=== PATIENT | female | born 1990 | race African-American/Black ===

== ENCOUNTER 2017-04-30 15:39 | Emergency (ER) | payer MEDICAID ==
[~2017-04-30] VITALS: Ht 157.5 cm; Wt 72.6 kg
[~2017-04-30 15:39] MED LIST: FAM20T PO; IBUP200C3 PO
[2017-04-30 16:05] VITALS: BP 129/73
== END 2017-04-30 18:01 | disposition home or self-care (01) ==
LOC: ER 15:42
DX: O34.81 Maternal care for other abnormalities of pelvic organs, first trimester (principal); Z3A.01 Less than 8 weeks gestation of pregnancy
CPT/HCPCS: 36415; 76801; 81025; 84702

== ENCOUNTER 2017-05-23 11:05 | Emergency (ER) | payer MEDICAID ==
[~2017-05-23] VITALS: Ht 157.5 cm; Wt 75.3 kg
[2017-05-23 11:20] VITALS: BP 106/66
[2017-05-23 12:10] LABS: Basophils # (auto) 0 uL; Basophils % (auto) 0.7 % (0.0-2.0); Eosinophils # (auto) 0.1 uL; Eosinophils % (auto) 0.8 % (0.0-7.0); Hematocrit 37.4 % (36.0-46.0); Hemoglobin 12.5 g/dL (12.2-16.2); Lymphocytes # (auto) 1.6 uL; Lymphocytes % (auto) 26.6 % (10.0-50.0); Mean Corpuscular Hemoglobin 29.4 pg (28.0-32.0); Mean Corpuscular Hgb Conc. 33.4 g/dL (32.0-36.0); Mean Corpuscular Volume 88.1 fL (80.0-100.0); Monocytes # (auto) 0.7 uL; Monocytes % (auto) 11.9 % (0.0-12.0); Neutrophils # (auto) 3.7 uL; Nucleated Red Blood Cells % 0.1 %; Platelet Count (auto) 272 10^3/uL (140-450); Red Blood Cells 4.24 10^6/uL (4.0-5.20); Red Cell Distribution Width 14.6 % (11.8-14.3); White Blood Cell 6.1 10^3/uL (4.4-10.8)
[2017-05-23 12:27] LABS: Albumin 3.1 g/dL (3.4-5.0); BUN/Creatinine Ratio 7.9; Bilirubin, Total 0.2 mg/dL (0.2-1.0); Calcium 8.6 mg/dL (8.5-10.1); Potassium 3.4 mmol/L (3.5-5.1); Total Protein 7.6 g/dL (6.4-8.2)
[2017-05-23 13:18] LABS: Urine Bacteria NONE SEEN /hpf (None Seen); Urine Blood Negative /uL (Negative); Urine Mucus FEW (None Seen); Urine WBC 1 /hpf (0 - 5)
== END 2017-05-23 16:39 | disposition home or self-care (01) ==
LOC: ER 11:05
DX: O20.0 Threatened abortion (principal); Z3A.09 9 weeks gestation of pregnancy
CPT/HCPCS: 36415; 76801; 80053; 81001; 84702; 85025

== ENCOUNTER 2017-07-03 16:30 | Emergency (ER) | payer MEDICAID ==
[~2017-07-03] VITALS: Ht 157.5 cm; Wt 75.3 kg
[2017-07-03 17:12] VITALS: BP 103/72
[2017-07-03 17:47] LABS: Urine Bacteria NONE SEEN /hpf (None Seen); Urine Blood Negative /uL (Negative); Urine Mucus FEW (None Seen); Urine Specific Gravity 1.015 (1.001-1.035); Urine WBC 2 /hpf (0 - 5)
== END 2017-07-03 18:36 | disposition home or self-care (01) ==
LOC: ER 16:30
DX: O23.42 Unspecified infection of urinary tract in pregnancy, second trimester (principal); O26.892 Other specified pregnancy related conditions, second trimester; R10.30 Lower abdominal pain, unspecified; Z3A.16 16 weeks gestation of pregnancy
CPT/HCPCS: 76805; 81001

== ENCOUNTER 2017-07-15 17:03 | Emergency (ER) | payer MEDICAID ==
[~2017-07-15] VITALS: Ht 157.5 cm; Wt 73.9 kg
[2017-07-15 17:20] VITALS: BP 121/67
[2017-07-15 18:05] LABS: Basophils # (auto) 0 uL; Basophils % (auto) 0.1 % (0.0-2.0); Eosinophils # (auto) 0 uL; Eosinophils % (auto) 0.5 % (0.0-7.0); Hematocrit 35.5 % (36.0-46.0); Lymphocytes # (auto) 1.4 uL; Lymphocytes % (auto) 16.5 % (10.0-50.0); Mean Corpuscular Hemoglobin 29.9 pg (28.0-32.0); Mean Corpuscular Hgb Conc. 33.7 g/dL (32.0-36.0); Mean Corpuscular Volume 88.7 fL (80.0-100.0); Monocytes # (auto) 0.8 uL; Monocytes % (auto) 8.9 % (0.0-12.0); Neutrophils # (auto) 6.4 uL; Platelet Count (auto) 247 10^3/uL (140-450); White Blood Cell 8.6 10^3/uL (4.4-10.8)
[2017-07-15 18:25] LABS: Albumin 2.7 g/dL (3.4-5.0); BUN/Creatinine Ratio 9.8; Calcium 8.8 mg/dL (8.5-10.1); Potassium 3.4 mmol/L (3.5-5.1)
[2017-07-15 18:28] LABS: Bilirubin, Total 0.2 mg/dL (0.2-1.0); Total Protein 7.1 g/dL (6.4-8.2)
[2017-07-15 18:29] LABS: Urine Bacteria FEW /hpf (None Seen); Urine Blood Negative /uL (Negative); Urine Mucus FEW (None Seen); Urine Specific Gravity 1.027 (1.001-1.035); Urine WBC 39 /hpf (0 - 5)
== END 2017-07-15 21:16 | disposition home or self-care (01) ==
LOC: ER 17:06
DX: O23.42 Unspecified infection of urinary tract in pregnancy, second trimester (principal); Z3A.20 20 weeks gestation of pregnancy
CPT/HCPCS: 36415; 76805; 80053; 81001; 84702; 85025

== ENCOUNTER 2017-08-05 11:55 | Observation (INO) | payer MEDICAID ==
[2017-08-05] MEDS ORDERED: PREN-96 PO (12:31)
== END 2017-08-05 12:50 | disposition home or self-care (01) | DRG 566 ==
LOC: LDRP 11:55
PROVIDERS: ADMIT Specialist; ATTEND Specialist
DX: O26.892 Other specified pregnancy related conditions, second trimester (principal); G43.909 Migraine, unspecified, not intractable, without status migrainosus; Z3A.20 20 weeks gestation of pregnancy
CPT/HCPCS: 59025; 81002; G0378

== ENCOUNTER 2017-08-05 12:59 | Emergency (ER) | payer MEDICAID ==
[~2017-08-05] VITALS: Ht 157.5 cm; Wt 73.9 kg
[~2017-08-05 12:59] MED LIST changes: +PREN-96 PO
[2017-08-05] MEDS ORDERED: ACETAMINOPHEN 325 MG TAB PO ONE (13:45)
[2017-08-05 14:10] VITALS: BP 172/73
== END 2017-08-05 14:47 | disposition home or self-care (01) ==
LOC: ER 12:59
DX: O26.892 Other specified pregnancy related conditions, second trimester (principal); G44.209 Tension-type headache, unspecified, not intractable; Z3A.20 20 weeks gestation of pregnancy; Z79.899 Other long term (current) drug therapy

== ENCOUNTER 2017-09-12 13:35 | Observation (INO) | payer MEDICAID ==
[~2017-09-12 13:35] MED LIST changes: -FAM20T PO; -IBUP200C3 PO; +NITR-48 PO
== END 2017-09-12 15:40 | disposition home or self-care (01) | DRG 566 ==
LOC: LDRP 13:35
PROVIDERS: ADMIT Specialist; ATTEND Specialist
DX: O26.892 Other specified pregnancy related conditions, second trimester (principal); G43.909 Migraine, unspecified, not intractable, without status migrainosus; N89.8 Other specified noninflammatory disorders of vagina; R21 Rash and other nonspecific skin eruption; O26.852 Spotting complicating pregnancy, second trimester; O99.352 Diseases of the nervous system complicating pregnancy, second trimester; Z3A.25 25 weeks gestation of pregnancy
CPT/HCPCS: 59025; 81002; 86695; 86696; 87070; 87491; 87591; G0378

== ENCOUNTER 2017-09-22 16:15 | Observation (INO) | payer MEDICAID ==
[~2017-09-22 16:15] MED LIST changes: -NITR-48 PO
== END 2017-09-22 17:50 | disposition home or self-care (01) | DRG 566 ==
LOC: LDRP 16:15
PROVIDERS: ADMIT Specialist; ATTEND Specialist
DX: O46.92 Antepartum hemorrhage, unspecified, second trimester (principal); Z3A.27 27 weeks gestation of pregnancy
CPT/HCPCS: 59025; 76805; 81002; G0378

== ENCOUNTER 2017-10-24 18:35 | Observation (INO) | payer MEDICAID | END 2017-10-24 20:25 | disposition home or self-care (01) | DRG 566 | LOC: LDRP 18:35 | PROVIDERS: ADMIT Specialist; ATTEND Specialist | DX: O36.8130 Decreased fetal movements, third trimester, not applicable or unspecified (principal); O26.893 Other specified pregnancy related conditions, third trimester; R10.9 Unspecified abdominal pain; R30.0 Dysuria; Z3A.31 31 weeks gestation of pregnancy | CPT/HCPCS: 59025; 76815; 81002; G0378 ==

== ENCOUNTER 2017-10-27 17:50 | Observation (INO) | payer MEDICAID ==
[~2017-10-27] VITALS: Ht 157.5 cm; Wt 73.9 kg
[2017-10-27] MEDS ORDERED: TERBUTALINE SULFATE 1 MG/ML 1ML VIAL SC ONE (20:07)
[2017-10-27] MEDS ORDERED: LACTATED RINGER'S 1,000 ML IV SCH (20:08)
[2017-10-27] MEDS ORDERED: AMOX500C2 PO (20:14)
[2017-10-27] MEDS ORDERED: TERBUTALINE SULFATE 1 MG/ML 1ML VIAL SC SCH (20:15)
[2017-10-27] MEDS ORDERED: ACETAMINOPHEN 325 MG TAB PO ONE (21:15)
== END 2017-10-27 21:45 | disposition home or self-care (01) | DRG 566 ==
LOC: LDRP 17:50
PROVIDERS: ADMIT Specialist; ATTEND Specialist
DX: O99.89 Other specified diseases and conditions complicating pregnancy, childbirth and the puerperium (principal); M54.5 Low back pain; Z3A.32 32 weeks gestation of pregnancy
CPT/HCPCS: 59025; 76815; 81002; 96372; G0378; J3105

== ENCOUNTER 2017-11-02 16:15 | Observation (INO) | payer MEDICAID ==
[~2017-11-02 16:15] MED LIST changes: +AMOX500C2 PO
[2017-11-02] MEDS ORDERED: ACETAMINOPHEN 500 MG TAB PO ONE (17:15)
[2017-11-02] MEDS: TERBUTALINE SULFATE 1 MG/ML 1ML VIAL SC SCH ×3 (17:30→18:15)
[2017-11-02] MEDS ORDERED: HYDROcodone-ACET 5/325MG TAB PO ONE (17:30)
[2017-11-02] MEDS ORDERED: NIFEdipine 10 MG CAP PO ONE (18:30)
[2017-11-02] MEDS ORDERED: NIFEdipine 10 MG CAP ONE (18:37)
== END 2017-11-02 23:43 | disposition home or self-care (01) | DRG 566 ==
LOC: LDRP 16:15
PROVIDERS: ADMIT Obstetrics & Gynecology; ATTEND Obstetrics & Gynecology
DX: O62.9 Abnormality of forces of labor, unspecified (principal); O26.893 Other specified pregnancy related conditions, third trimester; O21.2 Late vomiting of pregnancy; R30.9 Painful micturition, unspecified; R51 Headache; O46.8X3 Other antepartum hemorrhage, third trimester; V49.9XXA Car occupant (driver) (passenger) injured in unspecified traffic accident, initial encounter; Y93.89 Activity, other specified; Y92.410 Unspecified street and highway as the place of occurrence of the external cause; Y99.8 Other external cause status; Z3A.33 33 weeks gestation of pregnancy
CPT/HCPCS: 59025; 81002; 96372; G0378; J3105

== ENCOUNTER 2017-11-16 17:25 | Observation (INO) | payer MEDICAID | END 2017-11-16 19:31 | disposition home or self-care (01) | DRG 566 | LOC: LDRP 17:25 | PROVIDERS: ADMIT Specialist; ATTEND Specialist | DX: O62.9 Abnormality of forces of labor, unspecified (principal); Z3A.35 35 weeks gestation of pregnancy | CPT/HCPCS: 59025; 76815; 76818; 81002; G0378 ==

== ENCOUNTER → 2017-11-24 20:14 | Observation (INO) | payer MEDICAID ==
[~2017-11-24 20:14] MED LIST changes: +NIFEdipine 10 MG CAP ONE; +NIFEdipine 10 MG CAP PO ONE
[2017-11-24 21:13] LABS: Urine Bacteria MOD /hpf (None Seen); Urine Blood 1+ /uL (Negative); Urine Mucus FEW (None Seen); Urine WBC 217 /hpf (0 - 5); Urine WBC Clumps PRESENT /hpf (None Seen)
== END | disposition home or self-care (01) | DRG 563 ==
LOC: LDRP 20:14
PROVIDERS: ADMIT Obstetrics & Gynecology; ATTEND Obstetrics & Gynecology
DX: O60.03 Preterm labor without delivery, third trimester (principal); Z3A.36 36 weeks gestation of pregnancy
CPT/HCPCS: 59025; 76818; 81001; 81002; 82948; 82962; 87086; G0378

== ENCOUNTER 2017-11-28 16:14 | Observation (INO) | payer MEDICAID ==
[~2017-11-28 16:14] MED LIST changes: -NIFEdipine 10 MG CAP ONE; -NIFEdipine 10 MG CAP PO ONE
== END 2017-11-28 20:55 | disposition home or self-care (01) | DRG 565 ==
LOC: LDRP 19:55
PROVIDERS: ADMIT Obstetrics & Gynecology; ATTEND Obstetrics & Gynecology
DX: O47.9 False labor, unspecified (principal); O24.419 Gestational diabetes mellitus in pregnancy, unspecified control; G43.909 Migraine, unspecified, not intractable, without status migrainosus; O99.353 Diseases of the nervous system complicating pregnancy, third trimester; Z3A.36 36 weeks gestation of pregnancy
CPT/HCPCS: 59025; 81002; 82948; 82962; G0378

== ENCOUNTER 2017-12-02 19:19 | Observation (INO) | payer MEDICAID ==
[~2017-12-02 19:19] MED LIST changes: -AMOX500C2 PO
== END 2017-12-02 20:30 | disposition home or self-care (01) | DRG 566 ==
LOC: LDRP 19:19
PROVIDERS: ADMIT Specialist; ATTEND Specialist
DX: O24.419 Gestational diabetes mellitus in pregnancy, unspecified control (principal); O60.03 Preterm labor without delivery, third trimester; O26.893 Other specified pregnancy related conditions, third trimester; N89.8 Other specified noninflammatory disorders of vagina; Z3A.37 37 weeks gestation of pregnancy
CPT/HCPCS: 76818; 82962; G0378

== ENCOUNTER 2017-12-07 11:50 | Observation (INO) | payer MEDICAID | END 2017-12-07 13:20 | disposition home or self-care (01) | DRG 566 | LOC: LDRP 11:50 | PROVIDERS: ADMIT Specialist; ATTEND Specialist | DX: O62.9 Abnormality of forces of labor, unspecified (principal); O24.419 Gestational diabetes mellitus in pregnancy, unspecified control; Z3A.38 38 weeks gestation of pregnancy | CPT/HCPCS: 59025; 81002; 82948; 82962; G0378 ==

== ENCOUNTER 2017-12-11 19:52 | Observation (INO) | payer MEDICAID | END 2017-12-11 20:55 | disposition home or self-care (01) | DRG 566 | LOC: LDRP 19:52 | PROVIDERS: ADMIT Obstetrics & Gynecology; ATTEND Obstetrics & Gynecology | DX: O24.419 Gestational diabetes mellitus in pregnancy, unspecified control (principal); O60.03 Preterm labor without delivery, third trimester; O62.9 Abnormality of forces of labor, unspecified; Z3A.38 38 weeks gestation of pregnancy | CPT/HCPCS: 59025; 81002; G0378 ==

== ENCOUNTER 2017-12-15 20:07 | Observation (INO) | payer MEDICAID ==
[~2017-12-15] VITALS: Ht 157.5 cm; Wt 77.1 kg
== END 2017-12-15 21:30 | disposition home or self-care (01) | DRG 566 ==
LOC: LDRP 20:07
PROVIDERS: ADMIT Obstetrics & Gynecology; ATTEND Obstetrics & Gynecology
DX: O62.9 Abnormality of forces of labor, unspecified (principal); O26.893 Other specified pregnancy related conditions, third trimester; M54.9 Dorsalgia, unspecified; R10.9 Unspecified abdominal pain; O99.89 Other specified diseases and conditions complicating pregnancy, childbirth and the puerperium; Z3A.39 39 weeks gestation of pregnancy
CPT/HCPCS: 59025; 81002; 82948; 82962; G0378

== ENCOUNTER 2017-12-22 07:15 | Inpatient (IN) | payer MEDICAID ==
[~2017-12-22] VITALS: Ht 157.5 cm; Wt 77.1 kg
[2017-12-22] MEDS ORDERED: LIDOCAINE 2% (LOCAL ANESTH.) PF 5ml SDV ID ONE (07:45)
[2017-12-22] MEDS ORDERED: PHISODERM TOP SOLN 240ML BTL TOP PRN (07:45)
[2017-12-22] MEDS ORDERED: METHYLERGONOVINE MALEATE 0.2 MG/ML AMP IM PRN (07:45)
[2017-12-22] MEDS ORDERED: PENICILLIN G POT 5MIL/D5 50ML 50 ML IV ONE (07:45)
[2017-12-22] MEDS ORDERED: WITCH HAZEL-GLYCERIN PAD TOP PRN (07:45)
[2017-12-22] MEDS ORDERED: DERMOPLAST 60ML BOTTLE TOP PRN (07:45)
[2017-12-22 08:19] LABS: Basophils # (auto) 0 uL; Basophils % (auto) 0.5 % (0.0-2.0); Eosinophils # (auto) 0 uL; Eosinophils % (auto) 0.2 % (0.0-7.0); Hematocrit 38.9 % (36.0-46.0); Hemoglobin 12.2 g/dL (12.2-16.2); Lymphocytes # (auto) 1.6 uL; Lymphocytes % (auto) 32.7 % (10.0-50.0); Mean Corpuscular Hemoglobin 27.2 pg (28.0-32.0); Mean Corpuscular Hgb Conc. 31.3 g/dL (32.0-36.0); Mean Corpuscular Volume 86.9 fL (80.0-100.0); Monocytes # (auto) 0.6 uL; Monocytes % (auto) 13.1 % (0.0-12.0); Neutrophils # (auto) 2.6 uL; Neutrophils % (auto) 53.5 % (37.0-80.0); Nucleated Red Blood Cells % 0.1 %; Platelet Count (auto) 271 10^3/uL (140-450); Red Blood Cells 4.48 10^6/uL (4.0-5.20); Red Cell Distribution Width 15.1 % (11.8-14.3); White Blood Cell 4.9 10^3/uL (4.4-10.8)
[2017-12-22] MEDS: LACTATED RINGER'S 1,000 ML IV SCH ×3 (08:20→23:31)
[2017-12-22 08:31] LABS: INR 0.85 (0.9-1.15); Partial Thromboplastin Time 27.5 sec (23.78-33.04); Prothrombin Time 9.2 sec (9.27-12.13)
[2017-12-22 08:32] LABS: Urine Bacteria FEW /hpf (None Seen); Urine Blood TRACE /uL (Negative); Urine Mucus FEW (None Seen); Urine Specific Gravity 1.018 (1.001-1.035); Urine WBC 188 /hpf (0 - 5); Urine WBC Clumps PRESENT /hpf (None Seen)
[2017-12-22 08:37] LABS: Albumin 2.5 g/dL (3.4-5.0); Calcium 8.6 mg/dL (8.5-10.1); Potassium 3.6 mmol/L (3.5-5.1)
[2017-12-22 08:40] LABS: BUN/Creatinine Ratio 9.2; Bilirubin, Total 0.2 mg/dL (0.2-1.0)
[2017-12-22 08:45] LABS: Alcohol, Urine < 3.0 mg/dL (0-5); Amphetamine Screen, Urine NEGATIVE (NEGATIVE); Barbiturate Scree,Urine NEGATIVE (NEGATIVE); Benzodiazephine Screen, Urine NEGATIVE (NEGATIVE); Cannabinoid Screen, Urine NEGATIVE (NEGATIVE); Cocaine Screen, Urine NEGATIVE (NEGATIVE); Opiate Scree,Urine NEGATIVE (NEGATIVE); Phencyclidine Screen, Urine NEGATIVE (NEGATIVE)
[2017-12-22] MEDS: PENICILLIN G POTASSIUM 2,500,000 UNITS in D5W 5% 50 ML IV SCH ×2 (12:48→17:48)
[2017-12-22] MEDS ORDERED: NALBUPHINE HCL 10 MG/1ml INJECTION IV PRN ×2 (13:45)
[2017-12-22] MEDS ORDERED: LACT. RINGERS/OXYTOCIN 20UNITS 1,000 ML IV ONE (16:45)
[2017-12-22] MEDS ORDERED: ePHEDrine SULFATE 50 MG/ML AMP IV ONE ×2 (18:15→19:15)
[2017-12-22] MEDS ORDERED: NALOXONE HCL 0.4 MG/ML VIAL IV ONE ×2 (18:15→19:15)
[2017-12-22] MEDS ORDERED: fentaNYL W ROPIVACAINE 150 ML EPI SCH ×2 (18:15→19:15)
[2017-12-22] MEDS ORDERED: SODIUM CHLORIDE 0.9% 500 ML IV PRN (19:01)
[2017-12-22] MEDS: IBUPROFEN 600 MG TAB PO PRN (22:07)
[2017-12-23 03:20] VITALS: BP 113/73
[2017-12-23] MEDS: IBUPROFEN 600 MG TAB PO PRN ×3 (03:57→23:31)
[2017-12-23 06:50] VITALS: BP 110/59
[2017-12-23] MEDS ORDERED: HYDROcodone-ACET 5/325MG TAB PO PRN (07:00)
[2017-12-23] MEDS: LACTATED RINGER'S 1,000 ML IV SCH ×2 (07:31→15:31)
[2017-12-23 08:05] LABS: RPR Non Reactive (Non Reactive)
[2017-12-23] MEDS ORDERED: DOCUSATE CALCIUM 240 MG CAP PO SCH (10:00)
[2017-12-23] MEDS: HYDROcodone-ACET 10/325MG TAB PO PRN ×2 (10:44→17:31)
[2017-12-23 11:05] VITALS: BP 98/56
[2017-12-23] MEDS ORDERED: ACETAMINOPHEN 500 MG TAB PO PRN (12:30)
[2017-12-23 15:21] VITALS: BP 111/73
[2017-12-23 19:25] VITALS: BP 118/65
[2017-12-23 23:25] VITALS: BP 113/73
[2017-12-24] MEDS: HYDROcodone-ACET 10/325MG TAB PO PRN (00:05)
[2017-12-24 03:05] VITALS: BP 102/73
[2017-12-24] MEDS ORDERED: TETANUS-DIPTH-ACEL PERTUSSIS 0.5ML SYRG IM ONE (06:30)
[2017-12-24] MEDS ORDERED: INFLUENZA QUAD 2018-2019 0.5 ML SYRG IM ONE (06:30)
[2017-12-24 07:07] VITALS: BP 118/85
[2017-12-24] MEDS: IBUPROFEN 600 MG TAB PO PRN (07:51)
== END 2017-12-24 10:25 | disposition home or self-care (01) | DRG 560 ==
LOC: LDRP 07:15
PROVIDERS: ADMIT Specialist; ATTEND Specialist
PROC: 10E0XZZ Delivery of Products of Conception, External Approach (ICD-10-PCS; principal; 2017-12-22)
PROC: 3E0R3BZ Introduction of Anesthetic Agent into Spinal Canal, Percutaneous Approach (ICD-10-PCS; 2017-12-22)
PROC: 00HU33Z Insertion of Infusion Device into Spinal Canal, Percutaneous Approach (ICD-10-PCS; 2017-12-22)
PROC: 10907ZC Drainage of Amniotic Fluid, Therapeutic from Products of Conception, Via Natural or Artificial Opening (ICD-10-PCS; 2017-12-22)
DX: O69.81X0 Labor and delivery complicated by cord around neck, without compression, not applicable or unspecified (principal); Z37.0 Single live birth; Z3A.40 40 weeks gestation of pregnancy; Z88.1 Allergy status to other antibiotic agents
CPT/HCPCS: 36415; 51702; 59025; 59409; 80053; 80307; 81001; 81002; 85025; 85610; 85730; 86592; 86850; 86900; 86901; 90674; 90686; 90715; 94760; 96372; G0378; J2540; J2590; J3010; J7060

== ENCOUNTER 2018-03-17 16:16 | Emergency (ER) | payer MEDICAID ==
[~2018-03-17] VITALS: Ht 157.5 cm; Wt 68.9 kg
[2018-03-17 16:58] LABS: Urine Bacteria NONE SEEN /hpf (None Seen); Urine Blood Negative /uL (Negative); Urine Specific Gravity 1.026 (1.001-1.035); Urine WBC 1 /hpf (0 - 5)
[2018-03-17 19:08] LABS: Basophils # (auto) 0 uL; Basophils % (auto) 0.4 % (0.0-2.0); Eosinophils # (auto) 0.1 uL; Eosinophils % (auto) 0.8 % (0.0-7.0); Hematocrit 37.9 % (36.0-46.0); Hemoglobin 12.6 g/dL (12.2-16.2); Lymphocytes # (auto) 3.1 uL; Mean Corpuscular Hemoglobin 28.4 pg (28.0-32.0); Mean Corpuscular Hgb Conc. 33.4 g/dL (32.0-36.0); Mean Corpuscular Volume 85.1 fL (80.0-100.0); Monocytes # (auto) 0.8 uL; Monocytes % (auto) 8.8 % (0.0-12.0); Neutrophils # (auto) 5.2 uL; Platelet Count (auto) 250 10^3/uL (140-450); Red Blood Cells 4.45 10^6/uL (4.0-5.20); Red Cell Distribution Width 16.6 % (11.8-14.3); White Blood Cell 9.2 10^3/uL (4.4-10.8)
[2018-03-17 19:39] LABS: Albumin 3.5 g/dL (3.4-5.0); BUN/Creatinine Ratio 18.7; Calcium 8.2 mg/dL (8.5-10.1); Potassium 3.5 mmol/L (3.5-5.1)
[2018-03-17 19:42] LABS: Bilirubin, Total 0.3 mg/dL (0.2-1.0); Total Protein 7.9 g/dL (6.4-8.2)
[2018-03-17 23:30] VITALS: BP 140/86
== END 2018-03-17 23:38 | disposition home or self-care (01) ==
LOC: ER 16:21
DX: O26.891 Other specified pregnancy related conditions, first trimester (principal); O20.0 Threatened abortion; R10.84 Generalized abdominal pain; K62.5 Hemorrhage of anus and rectum; Z3A.01 Less than 8 weeks gestation of pregnancy
CPT/HCPCS: 36415; 76801; 80053; 81001; 81025; 84702; 85025

== ENCOUNTER 2018-09-12 18:33 | Observation (INO) | payer MEDICAID ==
[~2018-09-12] VITALS: Ht 157.5 cm; Wt 70.8 kg
[2018-09-12] MEDS ORDERED: LIDOCAINE VISCOUS 2% 15ML UD MT ONE (19:15)
[2018-09-12] MEDS ORDERED: LIDOCAINE VISCOUS 2% 15ML UD ONE (20:03)
[2018-09-12] MEDS ORDERED: HYDROcodone-ACET 5/325MG TAB PO ONE (20:45)
== END 2018-09-12 22:05 | disposition home or self-care (01) | DRG 566 ==
LOC: LDRP 18:33
PROVIDERS: ADMIT Obstetrics & Gynecology; ATTEND Obstetrics & Gynecology
DX: O36.8130 Decreased fetal movements, third trimester, not applicable or unspecified (principal); Z3A.30 30 weeks gestation of pregnancy; Z88.1 Allergy status to other antibiotic agents
CPT/HCPCS: 76818; G0378; 59025; 81002

== ENCOUNTER 2018-11-14 22:23 | Observation (INO) | payer MEDICAID | END 2018-11-14 23:39 | disposition home or self-care (01) | DRG 566 | LOC: LDRP 22:23 | PROVIDERS: ADMIT Specialist; ATTEND Specialist | DX: O62.9 Abnormality of forces of labor, unspecified (principal); Z3A.39 39 weeks gestation of pregnancy | CPT/HCPCS: 59025; G0378; J7030 ==

== ENCOUNTER 2018-11-16 15:23 | Inpatient (IN) | payer MEDICAID ==
[~2018-11-16] VITALS: Ht 157.5 cm; Wt 67.1 kg
[2018-11-16] MEDS ORDERED: LACT. RINGERS/OXYTOCIN 20UNITS 1,000 ML IV SCH (18:10)
[2018-11-16] MEDS ORDERED: LACTATED RINGER'S 1,000 ML IV SCH (18:10)
[2018-11-16] MEDS ORDERED: NALBUPHINE HCL 10 MG/1ml INJECTION IV PRN (18:15)
[2018-11-16] MEDS ORDERED: WITCH HAZEL-GLYCERIN PAD TOP PRN (18:15)
[2018-11-16] MEDS ORDERED: DERMOPLAST 60ML BOTTLE TOP PRN (18:15)
[2018-11-16] MEDS ORDERED: LIDOCAINE 2%HCL (LOCAL ANESTH.) INJ 20ML MDV ID ONE (18:15)
[2018-11-16] MEDS ORDERED: PHISODERM TOP SOLN 240ML BTL TOP PRN (18:15)
[2018-11-16] MEDS ORDERED: TERBUTALINE SULFATE 1 MG/ML 1ML VIAL SC ONE (18:15)
[2018-11-16] MEDS: CLINDAMYCIN 900MG IV 50 ML IV SCH (19:32)
[2018-11-16 19:55] LABS: INR < 0.93 (0.9-1.15); Partial Thromboplastin Time 27.7 sec (23.64-32.05)
[2018-11-16 19:59] LABS: Albumin 2.4 g/dL (3.4-5.0); Potassium 3.4 mmol/L (3.5-5.1)
[2018-11-16 20:00] LABS: Basophils # (auto) 0 uL; Basophils % (auto) 0.3 % (0.0-2.0); Eosinophils # (auto) 0 uL; Eosinophils % (auto) 0.4 % (0.0-7.0); Hematocrit 32.7 % (36.0-46.0); Lymphocytes # (auto) 1.8 uL; Lymphocytes % (auto) 28.2 % (10.0-50.0); Mean Corpuscular Hemoglobin 28.5 pg (28.0-32.0); Mean Corpuscular Hgb Conc. 33.6 g/dL (32.0-36.0); Mean Corpuscular Volume 84.8 fL (80.0-100.0); Monocytes # (auto) 0.7 uL; Monocytes % (auto) 10.8 % (0.0-12.0); Neutrophils % (auto) 60.3 % (37.0-80.0); Nucleated Red Blood Cells % 0.1 %; Platelet Count (auto) 206 10^3/uL (140-450); Red Blood Cells 3.86 10^6/uL (4.0-5.20); Red Cell Distribution Width 15.3 % (11.8-14.3); White Blood Cell 6.5 10^3/uL (4.4-10.8)
[2018-11-16 20:04] LABS: BUN/Creatinine Ratio 11.9; Bilirubin, Total 0.2 mg/dL (0.2-1.0); Total Protein 6.5 g/dL (6.4-8.2)
[2018-11-16] MEDS ORDERED: NALOXONE HCL 0.4 MG/ML VIAL IV ONE (20:30)
[2018-11-16] MEDS ORDERED: fentaNYL W ROPIVACAINE 150 ML EPI SCH (20:30)
[2018-11-16] MEDS ORDERED: ePHEDrine SULFATE 50 MG/ML AMP IV ONE (20:30)
[2018-11-16] MEDS ORDERED: fentaNYL CITRATE 100 MCG/2 ML VL IV ONE (20:30)
[2018-11-16] MEDS ORDERED: LIDOCAINE HCL 2 %PF INJ 10ML AMP IJ ONE (20:30)
[2018-11-16 21:11] LABS: Urine Bacteria NONE SEEN /hpf (None Seen); Urine Blood Negative /uL (Negative); Urine WBC <1 /hpf (0 - 5)
[2018-11-17] MEDS: CLINDAMYCIN 900MG IV 50 ML IV SCH (02:57)
[2018-11-17] MEDS ORDERED: METHYLERGONOVINE MALEATE 0.2 MG/ML AMP IM ONE (04:30)
[2018-11-17] MEDS ORDERED: ACETAMINOPHEN 325 MG TAB PO PRN (06:30)
--- NOTE | 2018-11-17 07:50 | NUR ---
Ambulation: Patient OOB with standby assistance by RN. Patient ambulated to bathroom with steady gait. Patient able to void 500 ML without difficulty. Pericare teaching provided with returned demonstration by patient.Dermoplast, tucks and clean peripad applied. Clean gown provided and bed linen changed. Patient ambulated back to bed with steady gait and no distress noted.
[2018-11-17] MEDS ORDERED: HYDROcodone-ACET 5/325MG TAB PO PRN (08:30)
[2018-11-17] MEDS ORDERED: HYDROcodone-ACET 5/325MG TAB ONE (08:41)
[2018-11-17] MEDS: IBUPROFEN 600 MG TAB PO PRN ×3 (09:51→18:55)
[2018-11-17 11:00] VITALS: BP 96/55
[2018-11-17] MEDS: HYDROcodone-ACET 5/325MG TAB PO PRN ×3 (13:25→21:56)
[2018-11-17 15:17] VITALS: BP 101/63
--- NOTE | 2018-11-17 17:00 | NUR ---
IV removal 20g IV to left hand DC'd with clean sterile technique, catheter fully intact. Pressure dressing applied to site. Patient tolerated well.
--- NOTE | 2018-11-17 18:55 | NUR ---
Pain: Patient c/o abdominal cramps/discomfort with pain scale 7/10. Motrin 600 mg PO given. Will continue to monitor.
[2018-11-17 19:00] VITALS: BP 100/66
--- NOTE | 2018-11-17 21:00 | NUR ---
Patient called and stated that her pain is not relieved with [place]. Patient's at the bedside and insisting to call MD for stronger medication. Discussed with them that Dr Rivera is already aware about her complaint and medication can be administered every 4 Hours if needed. Patient's still insist to call MD for order.
--- NOTE | 2018-11-17 21:30 | NUR ---
Pain Medication: Polly RN expresses that she would like me to talk to the patient regarding her request for stronger pain medication. This RN enters the room and the pt expresses that she would like something stronger for pain, this RN explains that she is already at a maximum safe dose and that Dr. Rivera stated previously that this was the maximum he was willing to give. DONTAE is at bedside and states that this RN must be racist because this RN is implying that because the pt is black she must have an opioid addiction. This RN states that that is not true, and that if that he would like, this RN will ask the house wirer helper to come talk to him. DONTAE continually states that he knows we're racist here and he's been getting that vibe all day. This RN leaves the room and calls Aj Finished Yarn Examiner to come see the patient. Addendum: 11/17/18 at 2209 by Emiliana Day RN MOB stated that she wanted [place], not and that she knows Dr. Rivera will give her more because he gave her some when she had her wisdom teeth removed.
--- NOTE | 2018-11-17 21:45 | NUR ---
Aj at Bedside: Aj arrives on the unit to talk to the pt. Aj requests that we call Dr. Rivera and askfor 1 norco rather than the two [place] so she isn't taking so much tylenol. This RN calls Dr. Rivera to report pt complaint of more pain medication and unresolved cramping, no further orders received.
--- NOTE | 2018-11-17 21:56 | NUR ---
Pain: [place] 5/325 mg 2 tab PO administered for abdominal cramps/discomfort. Pain scale is 8/10.
--- NOTE | 2018-11-17 22:56 | NUR ---
Pain re-assessment: Patient stated that her abdominal cramps slightly relieved with Spray . Per patient her pain scale is now 3/10. Hot packs provided as requested . Per patient it relieves her back pain. V/S taken and recorded. Will continue to monitor.
[2018-11-17 23:00] VITALS: BP 103/74
[2018-11-18 03:30] VITALS: BP 94/65
[2018-11-18] MEDS: HYDROcodone-ACET 5/325MG TAB PO PRN ×2 (03:36→08:45)
[2018-11-18 05:07] LABS: RPR Non Reactive (Non Reactive)
[2018-11-18] MEDS: IBUPROFEN 600 MG TAB PO PRN (05:22)
--- NOTE | 2018-11-18 06:06 | NUR ---
As stated by patient her pain level at this time is 2/10. Will give report to incoming RN.
[2018-11-18 07:30] VITALS: BP 104/74
[2018-11-18 11:00] VITALS: BP 96/72
--- NOTE | 2018-11-18 13:15 | NUR ---
Discharge: Discharge instructions given as ordered. Pt encouraged to follow up with [employer] [facility] as instructed. All questions and concerns addressed. Patient verbalized understanding. Medication reconciliation completed and copy given to patient. All required/requested vaccines given and copies of vaccinations given to patient. Patient encouraged to prepare to depart unit.
[2018-11-18 13:24] VITALS: BP 98/72
--- NOTE | 2018-11-18 13:42 | NUR ---
Discharge: Patient taken to vehicle via steady gait with all personal belongings, accompanied by staff and family member. No distress noted at time of departure, no adverse changes in status since initial assessment.
== END 2018-11-18 13:42 | disposition home or self-care (01) | DRG 560 ==
LOC: LDRP 15:23 → OBSVTOIN 15:23 → LDRP 18:32
PROVIDERS: ADMIT Obstetrics & Gynecology; ATTEND Obstetrics & Gynecology
PROC: 3E0R3BZ Introduction of Anesthetic Agent into Spinal Canal, Percutaneous Approach (ICD-10-PCS; 2018-11-16)
PROC: 00HU33Z Insertion of Infusion Device into Spinal Canal, Percutaneous Approach (ICD-10-PCS; 2018-11-16)
PROC: 10E0XZZ Delivery of Products of Conception, External Approach (ICD-10-PCS; principal; 2018-11-17)
DX: O80 Encounter for full-term uncomplicated delivery (principal); Z37.0 Single live birth; Z3A.39 39 weeks gestation of pregnancy; Z88.1 Allergy status to other antibiotic agents
CPT/HCPCS: 36415; 51702; 59025; 59409; 62282; 80053; 81001; 81002; 84112; 85025; 85610; 85730; 86592; 86850; 86900; 86901; 94762; 96365; 96366; 96372; G0378; J2590; J3010; J3490

== ENCOUNTER 2020-05-16 13:28 | Emergency (ER) | payer MEDICAID ==
[~2020-05-16] VITALS: Ht 157.5 cm; Wt 63.5 kg
[2020-05-16] MEDS ORDERED: SODIUM CHLORIDE 0.9% 1,000 ML IVB ONE (14:00)
[2020-05-16 14:33] LABS: Basophils # (auto) 0 10 ^3/uL (0-0.2); Basophils % (auto) 0.4 % (0.0-2.0); Eosinophils # (auto) 0.1 10 ^3/uL (0-0.8); Eosinophils % (auto) 0.8 % (0.0-7.0); Hematocrit 32.1 % (36.0-46.0); Lymphocytes # (auto) 2.6 10 ^3/uL (0.4-5.4); Lymphocytes % (auto) 34.8 % (10.0-50.0); Mean Corpuscular Hgb Conc. 34.1 g/dL (32.0-36.0); Mean Corpuscular Volume 90.7 fL (80.0-100.0); Monocytes # (auto) 0.7 10 ^3/uL (0-1.3); Neutrophils # (auto) 4.1 10 ^3/uL (1.6-8.6); Nucleated Red Blood Cells % 0.2 %; Platelet Count (auto) 257 10^3/uL (140-450); Red Blood Cells 3.54 10^6/uL (4.0-5.20); White Blood Cell 7.4 10^3/uL (4.4-10.8)
[2020-05-16 14:50] LABS: Calcium 8.7 mg/dL (8.5-10.1); Potassium 3.8 mmol/L (3.5-5.1)
[2020-05-16 14:56] LABS: Urine Bacteria NONE SEEN /hpf (None Seen); Urine Blood 3+ /uL (Negative); Urine Mucus FEW (None Seen); Urine Specific Gravity 1.022 (1.001-1.035); Urine WBC 42 /hpf (0 - 5)
[2020-05-16 14:56] LABS: Albumin 3.4 g/dL (3.4-5.0); BUN/Creatinine Ratio 19.7; Bilirubin, Total 0.2 mg/dL (0.2-1.0); Total Protein 7.1 g/dL (6.4-8.2)
[2020-05-16 16:33] VITALS: BP 123/89
== END 2020-05-16 18:07 | disposition home or self-care (01) ==
LOC: ER 13:28
DX: O20.8 Other hemorrhage in early pregnancy (principal); Z3A.01 Less than 8 weeks gestation of pregnancy
CPT/HCPCS: 36415; 76801; 76817; 80053; 81001; 84702; 85025; 96360; 99284; J7030

== ENCOUNTER 2020-05-27 01:25 | Emergency (ER) | payer MEDICAID ==
[~2020-05-27] VITALS: Ht 157.5 cm; Wt 63.5 kg
[2020-05-27 02:14] LABS: Basophils # (auto) 0.1 10 ^3/uL (0-0.2); Basophils % (auto) 0.9 % (0.0-2.0); Eosinophils # (auto) 0.1 10 ^3/uL (0-0.8); Eosinophils % (auto) 1.1 % (0.0-7.0); Hematocrit 34.1 % (36.0-46.0); Hemoglobin 11.5 g/dL (12.2-16.2); Lymphocytes # (auto) 2.6 10 ^3/uL (0.4-5.4); Lymphocytes % (auto) 40.5 % (10.0-50.0); Mean Corpuscular Hemoglobin 30.7 pg (28.0-32.0); Mean Corpuscular Hgb Conc. 33.8 g/dL (32.0-36.0); Mean Corpuscular Volume 90.7 fL (80.0-100.0); Monocytes # (auto) 0.6 10 ^3/uL (0-1.3); Monocytes % (auto) 9.5 % (0.0-12.0); Neutrophils # (auto) 3.1 10 ^3/uL (1.6-8.6); Platelet Count (auto) 298 10^3/uL (140-450); Red Blood Cells 3.76 10^6/uL (4.0-5.20); White Blood Cell 6.5 10^3/uL (4.4-10.8)
[2020-05-27 02:28] LABS: INR 0.97 (0.9-1.15); Partial Thromboplastin Time 28.5 sec (23.0-31.2)
[2020-05-27 02:31] LABS: Albumin 3.4 g/dL (3.4-5.0); BUN/Creatinine Ratio 16.4; Calcium 8.1 mg/dL (8.5-10.1); Potassium 3.3 mmol/L (3.5-5.1)
[2020-05-27 02:32] LABS: Bilirubin, Total 0.2 mg/dL (0.2-1.0); Total Protein 7.3 g/dL (6.4-8.2)
[2020-05-27 03:20] LABS: Urine Bacteria NONE SEEN /hpf (None Seen); Urine Blood 2+ /uL (Negative); Urine Hyaline Cast FEW /lpf (0 - 2); Urine Mucus FEW (None Seen); Urine Specific Gravity 1.023 (1.001-1.035); Urine WBC 2 /hpf (0 - 5)
[2020-05-27] MEDS ORDERED: MORPHINE SULFATE 4 MG/ML SYR/VIAL IV ONE (08:15)
[2020-05-27] MEDS ORDERED: ONDANSETRON HCL 4 MG/2 ML VIAL IV ONE (09:15)
[2020-05-27] MEDS ORDERED: SODIUM CHLORIDE 0.9% 1,000 ML IV ONE (09:15)
[2020-05-27 13:10] VITALS: BP 139/99
== END 2020-05-27 13:32 | disposition home or self-care (01) ==
LOC: ER 01:26
DX: R10.2 Pelvic and perineal pain (principal)
CPT/HCPCS: 36415; 76801; 76817; 80053; 81001; 84702; 85025; 85610; 85730; 86850; 86900; 86901; 96361; 96374; 96375; 99284; J2270; J2405

== ENCOUNTER 2021-11-05 18:26 | Emergency (ER) | payer MEDICAID ==
[~2021-11-05] VITALS: Ht 177.8 cm; Wt 59.0 kg
[2021-11-05 19:20] VITALS: BP 145/91
== END 2021-11-06 02:38 | disposition left against medical advice (07) ==
LOC: ER 18:26
DX: R51.9 Headache, unspecified (principal); Z53.21 Procedure and treatment not carried out due to patient leaving prior to being seen by health care provider
CPT/HCPCS: 81025

== ENCOUNTER 2023-12-16 16:04 | Inpatient (IN) | payer MEDICAID ==
[~2023-12-16] VITALS: Ht 157.5 cm; Wt 78.0 kg
--- NOTE | 2023-12-16 16:28 | ED.PDOC ---
HPI Comments 33 y.o female presents to the ED for a chief complaint of chest pain associated with SOB, nausea, vomiting, chills and fever that started last night. Patient reports she was woken up last night by the chest pain, described as sharp, constant and non radiating. Patient mentions one week ago she had a miscarriage at [facility] and since has also had constant cramping rating a 10/10 on the pain scale. Patient denies any vaginal bleeding. Time Seen by MD: 16:19 Primary Care Provider: ROSARIO Reviewed Notes: Nurses Notes, Medications, Allergies Allergies: Coded Allergies: Cephalexin (Verified Allergy, Unknown, 10/27/17) Facial Swelling Home Meds Reported Medications Vit W/ Ferrous Fumara ( One Daily) Daily Tab, 1 TAB PO DAILY, #90 TAB 3 Refills 08/05/17 Information Source: Patient Mode of Arrival: Ambulatory Severity: Moderate Timing: Hours Duration: Since onset Location: Substernal Radiation: No Radiation Quality: Sharp Onset: At Rest Cardiac Risk Factors: None PE Risk Factors: None History of: None Modifying Factors: Nothing Associated Signs and Symptoms: SOB, Abdominal Pain, N/V Past Medical History PAST MEDICAL HISTORY: Denies Surgical History: Denies all surgeries GLOVE CLEANER History: No Pertinent GLOVE CLEANER History Family History Family History: No family hx of HTN Social History Smoker: Non-Smoker Alcohol: Occasionally Drugs: Denies Drug Use Lives In: Home Constitutional: reports: chills, fever; denies: diaphoresis, fatigue, malaise, sweats, weakness, others EENTM: denies: blurred vision, double vision, ear bleeding, ear discharge, ear drainage, ear pain, ear ringing, eye pain, eye redness, hearing loss, mouth pain, mouth swelling, nasal discharge, nose bleeding, nose congestion, nose pain, photophobia, tearing, throat pain, throat swelling, voice changes, others Respiratory: reports: SOB at rest, shortness of breath, SOB with excertion; denies: cough, hemoptysis, orthopnea, stridor, wheezing, others Cardiovascular: reports: chest pain; denies: dizzy spells, diaphoresis, Dyspnea on exertion, edema, irregular heart beat, left arm pain, lightheadedness, palpitations, PND, syncope, others Gastrointestinal: reports: abdominal pain, nausea, vomiting; denies: abdomen distended, blood streaked bowels, constipated, diarrhea, dysphagia, difficulty swallowing, hematemesis, melena, poor appetite, poor fluid intake, rectal bleeding, rectal pain, others Genitourinary: denies: abnormal vagina bleeding, burning, dyspareunia, dysuria, flank pain, frequency, hematuria, incontinence, pain, , vagina discharge, urgency, others Neurological: denies: dizziness, fainting, headache, left sided numbness, left sided weakness, numbness, paresthesia, pre-existing deficit, right sided numbness, right sided weakness, seizure, speech problems, tingling, tremors, weakness, others Musculoskeletal: denies: back pain, gout, joint pain, joint swelling, muscle pain, muscle stiffness, neck pain, others Integumetry: denies: bruises, change in color, change in hair/nails, dryness, laceration, lesions, lumps, rash, wounds, others Allergic/Immunocompromised: denies: Difficulty Healing, Frequent Infections, Hives, Itching, others Hematologic/Lymphatic: denies: anemia, blood clots, easy bleeding, easy bruising, swollen glands, others Endocrine: denies: excessive hunger, excessive sweating, excessive thirst, excessive urination, flushing, intolerance to cold, intolerance to heat, unexplained weight gain, unexplained weight loss, others Psychiatric: denies: anxiety, bipolar disorder, depression, hopeless, panic disorder, schizophrenia, sleepless, suicidal, others All Other Systems: Reviewed and Negative Physical Exam General Appearance: Moderate Distress HEENT: Normal ENT Inspection, Pharynx Normal, TMs Normal Neck: Full Range of Motion, Non-Tender, Normal, Normal Inspection Respiratory: Chest Non-Tender, Lungs Clear, No Accessory Muscle Use, No Respiratory Distress, Normal Breath Sounds Cardiovascular: No Edema, No JVD, No Murmur, No Gallop, Normal Peripheral Pulses, Regular Rate/Rhythm Breast Exam: Deferred Gastrointestinal: No Organomegaly, Non Tender, No Pulsatile Mass, Normal Bowel Sounds, Soft Genitalia: Deferred Pelvic: Deferred Rectal: Deferred Extremities: No calf tenderness, Normal capillary refill, Normal inspection, Normal range of motion, Non-tender, No pedal edema Musculoskeletal : Apperance: Normal Neurologic: Alert, manager acute II-XII nml as Tested, No Motor Deficits, Normal Affect, Normal Mood, No Sensory Deficits Cerebellar Function: Normal Reflexes: Normal Skin: Dry, Normal Color, Warm Lymphatic: No Adenopathy EKG EKG : Pulse Rate (adult): 123 Cardiac Rhythm: ST Was a procedure done? Was a procedure done?: No CP Differential Dx Differential Diagnosis: IA, Pulmonary Embolus Differential Diagnosis: Angina, Myocardial Infarction, Pericarditis X-Ray, Labs, Meds, VS Vital Signs Date Time Temp Pulse Resp B/P (MAP) Pulse Ox O2 Delivery O2 Flow Rate FiO2 12/16/23 21:25 88 14 127/72 12/16/23 20:45 113 18 145/99 12/16/23 20:45 99.9 12/16/23 19:42 100.9 12/16/23 19:40 113 18 99 Room Air* 0 21 12/16/23 19:40 100.4 113 16 145/99 (114) 99 100.4 12/16/23 19:23 102.0 116 20 127/88 (101) 99 102.0 12/16/23 18:26 101.4 114 16 124/92 (103) 100 101.4 12/16/23 16:30 100.0 123 17 125/77 (93) 99 12/16/23 16:28 123 Lab Test 12/16/23 18:21 12/16/23 17:12 12/16/23 17:10 12/16/23 16:51 Range/Units SARS-CoV-2 Antigen (Rapid) Negative NEGATIVE Lactic Acid Level 1.7 0.4-2.0 mmol/L White Blood Count 6.3 4.4-10.8 10^3/uL Red Blood Count 3.61 L 4.0-5.20 10^6/uL Hemoglobin 9.0 L 12.2-16.2 g/dL Hematocrit 28.2 L 36.0-46.0 % Mean Corpuscular Volume 78.1 L 80.0-100.0 fL Mean Corpuscular Hemoglobin 25.1 L 28.0-32.0 pg Mean Corpuscular Hemoglobin Concent 32.1 32.0-36.0 g/dL Red Cell Distribution Width 17.3 H 11.8-14.3 % Platelet Count 303 140-450 10^3/uL Mean Platelet Volume 8.2 6.9-10.8 fL Neutrophils (%) (Auto) 76.8 37.0-80.0 % Lymphocytes (%) (Auto) 9.4 L 10.0-50.0 % Monocytes (%) (Auto) 13.0 H 0.0-12.0 % Eosinophils (%) (Auto) 0.3 0.0-7.0 % Basophils (%) (Auto) 0.5 0.0-2.0 % Neutrophils # (Auto) 4.8 1.6-8.6 10 ^3/uL Lymphocytes # (Auto) 0.6 0.4-5.4 10 ^3/uL Monocytes # (Auto) 0.8 0-1.3 10 ^3/uL Eosinophils # (Auto) 0 0-0.8 10 ^3/uL Basophils # (Auto) 0 0-0.2 10 ^3/uL Nucleated Red Blood Cells 0.2 % D-Dimer, Quantitative 0.63 H 0.0-0.49 mg/L FEU Sodium Level 139 136-145 mmol/L Potassium Level 3.6 3.5-5.1 mmol/L Chloride Level 105 98-107 mmol/L Carbon Dioxide Level 26 20-31 mmol/L Anion Gap 8 5-15 Blood Urea Nitrogen 8 L 9-23 mg/dL Creatinine 0.83 0.550-1.02 mg/dL Glomerular Filtration Rate Calc 95 >90 mL/min BUN/Creatinine Ratio 9.6 L 10.0-20.0 Serum Glucose 123 H 74-106 mg/dL Calcium Level 9.2 8.7-10.4 mg/dL Beta HCG, Quantitative 10.9 H 1.5-4.2 mIU/mL Urine Color Light-brown Yellow Urine Clarity Turbid H Clear Urine pH 6.5 5.0-9.0 Urine Specific [place] 1.026 1.001-1.035 Urine Protein 1+ H Negative Urine Ketones Negative Negative Urine Blood 3+ H Negative /uL Urine Nitrite Negative Negative Urine Bilirubin Negative Negative Urine Urobilinogen Normal Negative mg/dL Urine Leukocyte Esterase Negative Negative /uL Urine RBC 1104 0 - 4 /hpf Urine WBC 11 0 - 5 /hpf Urine Squamous Epithelial Cells Mod <5 /hpf Urine Bacteria None seen None Seen /hpf Urine Mucus Few None Seen Urine Glucose Normal Normal mg/dL Current Medications Medications (Trade) Dose Ordered Sig/Tyler Route Start Time Stop Time Status Last Admin Acetaminophen (Tylenol Tablet) 650 mg ONCE ONCE PO 12/16/23 19:40 12/16/23 19:41 DC 12/16/23 19:42 Morphine Sulfate 4 mg ONCE ONCE IV 12/16/23 20:00 12/16/23 20:01 DC 12/16/23 20:45 Ondansetron HCl (Zofran) 4 mg ONCE ONCE IV 12/16/23 20:00 12/16/23 20:01 DC 12/16/23 20:45 Ceftriaxone Sodium 50 ml @ 100 mls/hr ONCE ONCE IV 12/16/23 20:45 12/16/23 21:14 DC 12/16/23 20:51 The CBC shows anemia with a hemoglobin of 9 and hematocrit of 28.2 The urine test is negative for infection The pelvic ultrasound shows no IUP There is no concern for ectopic at this time We did call the hospitalist and they would like us to call OBGYN for consultation We have spoke with who was on-call and he states that he will consult on the patient The patient was being admitted at this time. Images Reviewed?: Images reviewed and evaluated by me Time of 1ST Reevaluation: 16:22 Reevaluation 1ST: Unchanged Patient Education/Counseling: Diagnosis, Treatment, Prognosis Family Education/Counseling: No Family Present Departure 1 Departure Time of Disposition: 21:37 Impression: Primary Impression: Intractable abdominal pain Additional Impressions: Fever Qualified Codes: R50.9 - Fever, unspecified Vomiting Qualified Codes: R11.2 - Nausea with vomiting, unspecified Elevated d-dimer Miscarriage Disposition: ADMITTED INPATIENT Admit to: Med Surg Condition: Fair Critical Care Note Critical Care Time?: No Stability Stability form required: Yes Unstable for transfer: ED Physician Assesment (Clinical assesment) I personally scribed for MARIELOS DOUGHERTY MD ([email or web address]) on 12/16/23 at 16:28. Electronically submitted by Sada Danielle ([facility]). MARIELOS DOUGHERTY MD Dec 16, 2023 16:28
[2023-12-16 16:52] LABS: Urine Bacteria None Seen /hpf (None Seen)
[2023-12-16 17:04] LABS: Urine Blood 3+ /uL (Negative); Urine Clarity Turbid (Clear); Urine Color Light-Brown (Yellow); Urine Mucus FEW (None Seen); Urine Protein, UAD 1+ (Negative); Urine Specific Gravity 1.026 (1.001-1.035); Urine Urobilinogen Normal (Negative); Urine WBC 11 /hpf (0 - 5); Urine pH 6.5 (5.0-9.0)
--- NOTE | 2023-12-16 17:09 | DVH ---
EXAM: XY CHEST TWO VIEWS ROUTINE TECHNIQUE: Two radiographic views of the chest CLINICAL HISTORY: sob COMPARISON: None Findings/Impression: Frontal and lateral chest radiographs demonstrate no acute osseous or superficial soft tissue abnorma lities. The trachea is midline. The cardiac silhouette and mediastinum are within normal limits. No pneumothorax, pleural effusions, or consolidations.
[2023-12-16 17:26] LABS: Basophils # (auto) 0 10 ^3/uL (0-0.2); Basophils % (auto) 0.5 % (0.0-2.0); Eosinophils # (auto) 0 10 ^3/uL (0-0.8); Eosinophils % (auto) 0.3 % (0.0-7.0); Hematocrit 28.2 % (36.0-46.0); Lymphocytes # (auto) 0.6 10 ^3/uL (0.4-5.4); Lymphocytes % (auto) 9.4 % (10.0-50.0); Mean Corpuscular Hemoglobin 25.1 pg (28.0-32.0); Mean Corpuscular Hgb Conc. 32.1 g/dL (32.0-36.0); Mean Corpuscular Volume 78.1 fL (80.0-100.0); Monocytes # (auto) 0.8 10 ^3/uL (0-1.3); Neutrophils # (auto) 4.8 10 ^3/uL (1.6-8.6); Neutrophils % (auto) 76.8 % (37.0-80.0); Nucleated Red Blood Cells % 0.2 %; Platelet Count (auto) 303 10^3/uL (140-450); Red Blood Cells 3.61 10^6/uL (4.0-5.20); Red Cell Distribution Width 17.3 % (11.8-14.3); White Blood Cell 6.3 10^3/uL (4.4-10.8)
[2023-12-16 18:01] LABS: Chloride 105 mmol/L (98-107); Potassium 3.6 mmol/L (3.5-5.1); Sodium 139 mmol/L (136-145)
[2023-12-16 18:02] LABS: Anion Gap 8 (5-15); Carbon Dioxide 26 mmol/L (20-31)
[2023-12-16 18:03] LABS: Calcium 9.2 mg/dL (8.7-10.4)
[2023-12-16 18:08] LABS: BUN/Creatinine Ratio 9.6 (10.0-20.0); Blood Urea Nitrogen 8 mg/dL (9-23); Glucose 123 mg/dL (74-106)
[2023-12-16 19:23] LABS: COVID19 ANTIGEN SOFIA FIA NEGATIVE (NEGATIVE)
[2023-12-16 19:40] VITALS: PULSE 113; RESP 18; O2SAT 99
[2023-12-16] MEDS: ACETAMINOPHEN 325 MG TAB PO ONE (19:42)
[2023-12-16] MEDS: IOHEXOL 350 MG/ML 100ML IJ ONE (20:15)
--- NOTE | 2023-12-16 20:43 | DVH ---
INDICATION: sob pulmonary embolus Comparison study: None applicable TECHNIQUE: Multidetector CTA of the chest was performed of the chest with 100 cc of intravenous contr ast. PULMONARY ANGIOGRAPHY PROTOCOL was utilized using a bolus-tracking technique centered on the aurelia n pulmonary artery. Axial, coronal and sagittal multiplanar and MIP reformats were performed. Radiation Dose Information: CT Dose: CTDI volume is 26.74 mGy. Dose-length product is 504.48 mGy*cm The dose indicators for CT are the volume Computed Tomography (CT) Dose Index (CTDIvol) and the Dose Length Product (DLP), and are measured in units of mGy and mGy-cm, respectively. These indicators are not patient dose, but values generated from the CT scanner acquisition factors. The report includes radiation exposure data for exposures received during this examination. Findings: Pulmonary artery: Normal caliber of the pulmonary artery. No large central or large segmental pulmo nary embolism. Lower neck: Normal thyroid. Lungs: No focal consolidation, pulmonary mass, or suspicious pulmonary nodule. Heart/Vascular Structures: Normal heart size. Normal caliber and enhancement of the aorta. Lymph Nodes: No adenopathy Pleura: No pleural effusion or significant pneumothorax. Musculoskeletal: No acute osseous abnormality. Upper abdomen: Limited portions of the upper abdomen are unremarkable. IMPRESSION: 1. No pulmonary embolism. 2. No findings to suggest pulmonary artery hypertension. 3. No pulmonary infiltrates or pleural effusions. HS:Y
[2023-12-16] MEDS: MORPHINE SULFATE 4 MG/ML SYR/VIAL IV ONE (20:45)
[2023-12-16] MEDS: ONDANSETRON HCL 4 MG/2 ML VIAL IV ONE (20:45)
[2023-12-16] MEDS: cefTRIAXone 1GM/50ML D5W 50 ML IV ONE (20:51)
--- NOTE | 2023-12-16 21:02 | DVH ---
Procedure: US OB ULTRASOUND COMP LESS 14WKS Study Date and Requested Time: 12/16/2023 08:16 PM Study Description: US OB ULTRASOUND COMP LESS 14WKS History: pain Comparison: None Technique: Multiple high resolution [place]-scale images obtained of the uterus, fetus, and other gestat ional components with M-mode scanning for evaluation of heart rate. Findings: No intrauterine is visualized. Uterus measures 9 x 4.9 x 5.7 cm in size. Endometrial thickness of 1 cm. Cervical os appears closed. Right ovary measures 3.3 x 2.1 x 3.4 cm. Left ovary measures 4.6 x 1.8 x 3.2 cm. Normal ovarian color Doppler flow bilaterally. No evidence of cystic or solid ovarian lesions. No evidence of free fluid in the cul-de-sac. Impression: No intrauterine is visualized. An ectopic can not be excluded. Recommend follow-u p with serial beta HCG and ultrasound as clinically indicated.
[2023-12-16] MEDS ORDERED: ACETAMINOPHEN 325 MG TAB PO PRN (22:00)
--- NOTE | 2023-12-16 22:22 | DVHINCON2 ---
Date of service: Dec 16, 2023 Reason for Consultation Recent SAB History of Present Illness HPI 33y AA female, Ab2 LMP . s/p medically induced with misoprostol on 11/22/23 due to failed 1st trim (Blighted ovum) Patient had bleeding and passed all tissue. Pre-SAB HCG reported to be 20,000 range with US showing only a GS in uterus and no pole per patient. For the last two weeks she has had vaginal bleeding off and on since the SAB and uterine cramping. Denies fever until today, in which she has had Tmax 102 deg F. Patient has had flu like symptoms, malaise, cough, SOB and chest pain x 3 days. c/o headache and back pain Denies dysuria. Denies any flank pain or history of nephrolithiasis. Denies any foul vaginal discharge other than light brown discharge. Pelvic US reveals empty uterus with 1cm endometrial stripe, No evidence of retained tissue, cervix closed on US. No adnexal masses or free fluid HCG quant is 10.9 now. 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 History Family History Family History: Negative Social History Smoker: Non-Smoker Alcohol: Occasionally Drugs: Denies Drug Use Lives In: Home Constitutional: reports: chills, fever; denies: diaphoresis, fatigue, malaise, sweats, weakness, others EENTM: denies: blurred vision, double vision, ear bleeding, ear discharge, ear drainage, ear pain, ear ringing, eye pain, eye redness, hearing loss, mouth pain, mouth swelling, nasal discharge, nose bleeding, nose congestion, nose pain, photophobia, tearing, throat pain, throat swelling, voice changes, others Respiratory: reports: SOB at rest, shortness of breath, SOB with excertion; denies: cough, hemoptysis, orthopnea, stridor, wheezing, others Cardiovascular: reports: chest pain; denies: dizzy spells, diaphoresis, Dyspnea on exertion, edema, irregular heart beat, left arm pain, lightheadedness, palpitations, PND, syncope, others Gastrointestinal: reports: abdominal pain, nausea, vomiting; denies: abdomen distended, blood streaked bowels, constipated, diarrhea, dysphagia, difficulty swallowing, hematemesis, melena, poor appetite, poor fluid intake, rectal bleeding, rectal pain, others Genitourinary: denies: abnormal vagina bleeding, burning, dyspareunia, dysuria, flank pain, frequency, hematuria, incontinence, pain, , vagina discharge, urgency, others Neurological: denies: dizziness, fainting, headache, left sided numbness, left sided weakness, numbness, paresthesia, pre-existing deficit, right sided numbness, right sided weakness, seizure, speech problems, tingling, tremors, weakness, others Musculoskeletal: denies: back pain, gout, joint pain, joint swelling, muscle pain, muscle stiffness, neck pain, others Integumetry: denies: bruises, change in color, change in hair/nails, dryness, laceration, lesions, lumps, rash, wounds, others Allergic/Immunocompromised: denies: Difficulty Healing, Frequent Infections, Hives, Itching, others Hematologic/Lymphatic: denies: anemia, blood clots, easy bleeding, easy bruising, swollen glands, others Endocrine: denies: excessive hunger, excessive sweating, excessive thirst, excessive urination, flushing, intolerance to cold, intolerance to heat, unexplained weight gain, unexplained weight loss, others Psychiatric: denies: anxiety, bipolar disorder, depression, hopeless, panic disorder, schizophrenia, sleepless, suicidal, others All Other Systems: Reviewed and Negative Home Meds Reported Medications Vit W/ Ferrous Fumara ( One Daily) Daily Tab, 1 TAB PO DAILY, #90 TAB 3 Refills 08/05/17 Past Medical History Patient Family History: Anxiety disorder G8 SISTER Diabetes mellitus G8 MOTHER FHx: allergies G8 SISTER Hypertension G8 MOTHER G8 FATHER H&P Exam Vital Signs Vital Signs Date Time Temp Pulse Resp B/P (MAP) Pulse Ox O2 Delivery O2 Flow Rate FiO2 12/16/23 21:25 88 14 127/72 12/16/23 20:45 99.9 12/16/23 19:40 99 Room Air* 0 21 General Appeara: Well developed, Well nourished, Normal Appearance, Mild distress Head Exam: Normal inspection Eye Exam: bilateral eye PERRL Pulmonary/Respiratory: Normal inspection Cardiovascular/Chest: Normal inspection Abdominal Exam: Soft, No tenderness, No hepatospenomegaly, No masses Rectal Exam: Deferred Pelvic Exam: External exam normal, Bimanual exam normal, Speculum exam normal, Tender uterus (mild), Other (Cervix closed, no active bleeding. Uterus not enlarged. No palpable adnexal masses) BOAT PULLER Exam: Normal hearing Thoughts/Psych: Normal thought pattern Skin Exam: Normal inspection Labs/Xrays PATIENT: JACQUES PEÑACCT: [id number] UNIT: [id number] : 1990 LOC: ER ROOM / BED: / AGE / SEX: 33 / F ADM STATUS: REG ER SERVICE 14 ORDERING PHYSICIAN: MARIELOS DOUGHERTY MD PROCEDURE(s): OB4US - OB ULTRASOUND COMP LESS 14WKS REASON: pain ORDER NUMBER(s): [id number], ACCESSION NUMBER(s): [id number] Procedure: US OB ULTRASOUND COMP LESS 14WKS Study Date and Requested Time: 12/16/2023 08:16 PM Study Description: US OB ULTRASOUND COMP LESS 14WKS History: pain Comparison: None Technique: Multiple high resolution [place]-scale images obtained of the uterus, fetus, and other gestational components with M-mode scanning for evaluation of heart rate. Findings: No intrauterine is visualized. Uterus measures 9 x 4.9 x 5.7 cm in size. Endometrial thickness of 1 cm. Cervical os appears closed. Right ovary measures 3.3 x 2.1 x 3.4 cm. Left ovary measures 4.6 x 1.8 x 3.2 cm. Normal ovarian color Doppler flow bilaterally. No evidence of cystic or solid ovarian lesions. No evidence of free fluid in the cul-de-sac. Impression: No intrauterine is visualized. An ectopic can not be excluded. Recommend follow-up with serial beta HCG and ultrasound as clinically indicated. Labs Test 12/16/23 18:21 12/16/23 17:12 12/16/23 17:10 12/16/23 16:51 Range/Units SARS-CoV-2 Antigen (Rapid) Negative NEGATIVE Lactic Acid Level 1.7 0.4-2.0 mmol/L White Blood Count 6.3 4.4-10.8 10^3/uL Red Blood Count 3.61 L 4.0-5.20 10^6/uL Hemoglobin 9.0 L 12.2-16.2 g/dL Hematocrit 28.2 L 36.0-46.0 % Mean Corpuscular Volume 78.1 L 80.0-100.0 fL Mean Corpuscular Hemoglobin 25.1 L 28.0-32.0 pg Mean Corpuscular Hemoglobin Concent 32.1 32.0-36.0 g/dL Red Cell Distribution Width 17.3 H 11.8-14.3 % Platelet Count 303 140-450 10^3/uL Mean Platelet Volume 8.2 6.9-10.8 fL Neutrophils (%) (Auto) 76.8 37.0-80.0 % Lymphocytes (%) (Auto) 9.4 L 10.0-50.0 % Monocytes (%) (Auto) 13.0 H 0.0-12.0 % Eosinophils (%) (Auto) 0.3 0.0-7.0 % Basophils (%) (Auto) 0.5 0.0-2.0 % Neutrophils # (Auto) 4.8 1.6-8.6 10 ^3/uL Lymphocytes # (Auto) 0.6 0.4-5.4 10 ^3/uL Monocytes # (Auto) 0.8 0-1.3 10 ^3/uL Eosinophils # (Auto) 0 0-0.8 10 ^3/uL Basophils # (Auto) 0 0-0.2 10 ^3/uL Nucleated Red Blood Cells 0.2 % D-Dimer, Quantitative 0.63 H 0.0-0.49 mg/L FEU Sodium Level 139 136-145 mmol/L Potassium Level 3.6 3.5-5.1 mmol/L Chloride Level 105 98-107 mmol/L Carbon Dioxide Level 26 20-31 mmol/L Anion Gap 8 5-15 Blood Urea Nitrogen 8 L 9-23 mg/dL Creatinine 0.83 0.550-1.02 mg/dL Glomerular Filtration Rate Calc 95 >90 mL/min BUN/Creatinine Ratio 9.6 L 10.0-20.0 Serum Glucose 123 H 74-106 mg/dL Calcium Level 9.2 8.7-10.4 mg/dL Beta HCG, Quantitative 10.9 H 1.5-4.2 mIU/mL Urine Color Light-brown Yellow Urine Clarity Turbid H Clear Urine pH 6.5 5.0-9.0 Urine Specific [place] 1.026 1.001-1.035 Urine Protein 1+ H Negative Urine Ketones Negative Negative Urine Blood 3+ H Negative /uL Urine Nitrite Negative Negative Urine Bilirubin Negative Negative Urine Urobilinogen Normal Negative mg/dL Urine Leukocyte Esterase Negative Negative /uL Urine RBC 1104 0 - 4 /hpf Urine WBC 11 0 - 5 /hpf Urine Squamous Epithelial Cells Mod <5 /hpf Urine Bacteria None seen None Seen /hpf Urine Mucus Few None Seen Urine Glucose Normal Normal mg/dL Assessment/Plan Admitting Diagnosis: Abdominal Pain with Fever of unknown origin Complete , possible endometritis Plan Recommend PO Flagyl and Doxycycline x 7 days empirically Needs work up for other causes of fever and headache F/U w/ primary fashion marketer in 1 week No other acute NUTS AND BOLTS ASSEMBLER intervention indicated at this time NUTS AND BOLTS ASSEMBLER WILL SIGN OFF Plan discussed with: Patient Date of Service: Dec 16, 2023 Billing Provider: MIO PUENTE DO Common Visit Codes: CONSULT ONLY Consultation Codes: [id number] CONSULT <45MIN MIO PUENTE DO Dec 16, 2023 22:22
[2023-12-17] VITALS (8 sets, daily range): BP systolic 104–140; BP diastolic 67–95; PULSE 79–113; RESP 16–20; TEMP 98.6–100.3; O2SAT 93–99
--- NOTE | 2023-12-17 00:27 | DVHHP2 ---
Admitting Diagnosis: Abdominal cramping, acute anemia, bleeding History of Present Illness History Source: Patient Exam Limitations: No limitations HPI Mrs. Becka Weston is a 33 yo female with known history of iron deficiency anemia, Miscarriage x [address] [facility]. Patient presents with abdominal cramping, shortness of breath, vaginal bleeding intermittently, generalized body aches, febrile. Patient reports she has been having pelvic contractions with intermittent vaginal bleeding x 2 weeks. Patient also endorses generalized body aches with fevers and shortness of breath. Patient chest x ray with no acute cardiopulmonary disease. CTA chest with no pulmonary embolism or other etiology. Patient OB US: No intrauterine is visualized. An ectopic can not be excluded. Recommend follow-up with serial beta HCG and ultrasound as clinically indicated. Patient was seen by OBGYN in ED. Patient denies chest pain, dyspnea, headaches, dizziness, diarrhea, constipation. Patient admitted for further evaluation. Home Meds Discontinued Reported Medications Vit W/ Ferrous Fumara ( One Daily) Daily Tab, 1 TAB PO DAILY, #90 TAB 3 Refills 08/05/17 Past Medical History Cardiac: No pertinent Hx Pulmonary: No pertinent Hx Central Nervous System: No pertinent Hx GI: No pertinent Hx Hemotology/Oncology: Anemia NOS Hepatobiliary: No pertinent Hx Psychiatric: No pertinent Hx Musculoskeletal: No pertinent Hx Rheumotologic: No pertinent Hx Infectious Disease: No peritnent Hx ENT: No pertinent Hx Renal/: No pertinent Hx Endocrine: No pertinent Hx Dermatology: No pertinent Hx Others Miscarriage Patient Family History: Anxiety disorder G8 SISTER Diabetes mellitus G8 MOTHER FHx: allergies G8 SISTER Hypertension G8 MOTHER G8 FATHER Smoker: No Hx (Negative) Alocohol: None Drugs: None Lives with: With family Domestic Violence: Neg Review of Systems Constitutional: No symptom reported Ears, Nose, & Throat: No symptom reported Eyes: No symptom reported Pulmonary/Respiratory: No symptom reported Cardiovascular: No symptom reported Gastrointestinal: Abdominal Pain (pelvic contractions, vaginal bleeding intermittently) Genitourinary: No symptom reported Musculoskeletal: No symptom reported Skin: No symptom reported Psychiatric: No symptom reported Endocrine: No symptom reported Hemotologic/Lymphatic: No symptom reported H&P Exam Vital Signs Vital Signs Date Time Temp Pulse Resp B/P (MAP) Pulse Ox O2 Delivery O2 Flow Rate FiO2 12/17/23 00:00 84 12/16/23 21:25 14 127/72 12/16/23 20:45 99.9 12/16/23 19:40 99 Room Air* 0 21 General Appeara: Well developed, Well nourished, Normal Appearance Head Exam: Normal inspection Neck Exam: Normal inspection, Non-tender, Normal alignment Eye Exam: bilateral eye Normal inspection, bilateral eye PERRL, bilateral eye EOMI Ear Exam: bilateral ear Auricle normal Nasal Exam: Normal inspection Mouth: Normal Inspection Pulmonary/Respiratory: Normal inspection, Normal breath sounds, Chest non- tender, Lungs clear Cardiovascular/Chest: Normal inspection, Regular rate, Normal Rhythm Peripheral Pulses: 2+ dorsalis pedis (R), 2+ dorsalis pedis (L), 2+ Radial (R), 2+ Radial (L) Abdominal Exam: Normal bowel sounds, Soft, No tenderness Rectal Exam: Deferred Pelvic Exam: External exam normal INSTRUMENT MECHANIC Exam: Normal hearing, Normal speech, PERRL Neuro/Mental St: Alert, Oriented Appearance: Appropriate appearance, Appropriate insight Eye contact/ Speech: Cooperative, Good eye contact, Normal speech Thoughts/Psych: Normal thought pattern Skin Exam: Normal inspection, Normal color, Warm/dry Labs/Xrays Labs Test 12/16/23 22:16 12/16/23 18:21 12/16/23 17:10 12/16/23 16:51 Range/Units Lactic Acid Level 1.6 0.4-2.0 mmol/L SARS-CoV-2 Antigen (Rapid) Negative NEGATIVE White Blood Count 6.3 4.4-10.8 10^3/uL Red Blood Count 3.61 L 4.0-5.20 10^6/uL Hemoglobin 9.0 L 12.2-16.2 g/dL Hematocrit 28.2 L 36.0-46.0 % Mean Corpuscular Volume 78.1 L 80.0-100.0 fL Mean Corpuscular Hemoglobin 25.1 L 28.0-32.0 pg Mean Corpuscular Hemoglobin Concent 32.1 32.0-36.0 g/dL Red Cell Distribution Width 17.3 H 11.8-14.3 % Platelet Count 303 140-450 10^3/uL Mean Platelet Volume 8.2 6.9-10.8 fL Neutrophils (%) (Auto) 76.8 37.0-80.0 % Lymphocytes (%) (Auto) 9.4 L 10.0-50.0 % Monocytes (%) (Auto) 13.0 H 0.0-12.0 % Eosinophils (%) (Auto) 0.3 0.0-7.0 % Basophils (%) (Auto) 0.5 0.0-2.0 % Neutrophils # (Auto) 4.8 1.6-8.6 10 ^3/uL Lymphocytes # (Auto) 0.6 0.4-5.4 10 ^3/uL Monocytes # (Auto) 0.8 0-1.3 10 ^3/uL Eosinophils # (Auto) 0 0-0.8 10 ^3/uL Basophils # (Auto) 0 0-0.2 10 ^3/uL Nucleated Red Blood Cells 0.2 % D-Dimer, Quantitative 0.63 H 0.0-0.49 mg/L FEU Sodium Level 139 136-145 mmol/L Potassium Level 3.6 3.5-5.1 mmol/L Chloride Level 105 98-107 mmol/L Carbon Dioxide Level 26 20-31 mmol/L Anion Gap 8 5-15 Blood Urea Nitrogen 8 L 9-23 mg/dL Creatinine 0.83 0.550-1.02 mg/dL Glomerular Filtration Rate Calc 95 >90 mL/min BUN/Creatinine Ratio 9.6 L 10.0-20.0 Serum Glucose 123 H 74-106 mg/dL Calcium Level 9.2 8.7-10.4 mg/dL Beta HCG, Quantitative 10.9 H 1.5-4.2 mIU/mL Urine Color Light-brown Yellow Urine Clarity Turbid H Clear Urine pH 6.5 5.0-9.0 Urine Specific [place] 1.026 1.001-1.035 Urine Protein 1+ H Negative Urine Ketones Negative Negative Urine Blood 3+ H Negative /uL Urine Nitrite Negative Negative Urine Bilirubin Negative Negative Urine Urobilinogen Normal Negative mg/dL Urine Leukocyte Esterase Negative Negative /uL Urine RBC 1104 0 - 4 /hpf Urine WBC 11 0 - 5 /hpf Urine Squamous Epithelial Cells Mod <5 /hpf Urine Bacteria None seen None Seen /hpf Urine Mucus Few None Seen Urine Glucose Normal Normal mg/dL Assessment/Plan Problem List: (1) Intractable abdominal pain (2) Pelvic pain (3) Fever Plan 33 yo female with history of recent miscarriage x 2 weeks ago presents with abdominal cramping, febrile, shortness of breath. 1. Intractable Abdominal pain 2. Febrile Admit Telemetry OBGYN consultation IV fluids NS serial Beta HCG Lactic level serial H&H Empiric antibiotics as per OBGYN recommendation appreciated Discussed all above with patient who verbalizes agreement and understanding of care plan. All questions were answered. Discussed assessment and care plan with supervising MD Dr. Goetz. Plan discussed with: Patient, Other Code Visit Code Visit Total Time (mins): 45 Additional Comments Additional Comments Additional Comments 73-year-old female with known history of iron deficiency anemia, recent miscarriage two weeks ago at [facility] presented to the hospital with shortness of breaths vaginal bleeding intermittently generalized body aches and fever found to have 1. Intractable lower abdominal pain with contractions, follow up Ob/gynecology 2. Fever rule out sepsis , suspected endometritis 3. Iron-deficiency anemia 4. Elevated D-dimer ruled out PE -continue doxycycline and Flagyl for possible endometritis -infectious disease consultation, follow up gynecology DAVID MEDINA Dec 17, 2023 00:27 ASIM GOETZ MD Dec 17, 2023 16:21
[2023-12-17 00:58] LABS: Hematocrit 24.9 % (36.0-46.0); Hemoglobin 8.2 g/dL (12.2-16.2)
[2023-12-17] MEDS: ONDANSETRON HCL 4 MG/2 ML VIAL IV PRN (03:37)
[2023-12-17] MEDS: HYDROcodone-ACET 5/325MG TAB PO PRN (03:38)
[2023-12-17 06:36] LABS: INR 1.08 (0.9-1.15); Prothrombin Time 11.4 sec (9.3-11.8)
[2023-12-17 07:32] LABS: Hematocrit 25.1 % (36.0-46.0); Hemoglobin 7.6 g/dL (12.2-16.2); Mean Corpuscular Hemoglobin 23.7 pg (28.0-32.0); Mean Corpuscular Hgb Conc. 30.2 g/dL (32.0-36.0); Mean Corpuscular Volume 78.5 fL (80.0-100.0); Platelet Count (auto) 249 10^3/uL (140-450); Red Blood Cells 3.19 10^6/uL (4.0-5.20); Red Cell Distribution Width 17.7 % (11.8-14.3); White Blood Cell 3.5 10^3/uL (4.4-10.8)
[2023-12-17 07:35] LABS: Basophils % (manual) 0 (0.0-2.0); Blast Cells 0; Eosinophils % (manual) 0 (0-7); Metamyelocytes % 0; Myelocytes % 0; Promyelocytes % 0; Reactive Lymphocytes 0
[2023-12-17 10:37] LABS: Band Neutrophils % (manual) 1; Lymphocytes % (manual) 35 (10.0-50.0); Monocytes % (manual) 10 (0-12)
[2023-12-17 10:38] LABS: Platelet Estimate Adequate
[2023-12-17] MEDS: DOXYCYCLINE 100 MG TAB/CAP PO SCH (10:44)
[2023-12-17] MEDS: PANTOPRAZOLE 40 MG/10 ML VIAL INJ IV SCH (10:44)
[2023-12-17] MEDS: metroNIDAZOLE 500 MG TAB PO SCH (10:44)
[2023-12-17 12:22] LABS: Hematocrit 25.1 % (36.0-46.0)
--- NOTE | 2023-12-17 12:38 | DVH ---
Procedure: US OB ULTRASOUND COMP LESS 14WKS 12/17/2023 07:49 AM Indication: follow up. Comparison: US OB ULTRASOUND COMP LESS 14WKS on DOS: 12/16/23 Technique: Real-time grayscale and color images were obtained. FINDINGS: UTERUS: Anteverted, measuring 8.6 cm in length. Homogeneous myometrium without a discrete lesion. The endometrial stripe measures 0.8 cm. No free fluid in the endometrial canal. No intrauterine pregnanc y seen. OVARIES: Normal in size bilaterally with normal echotexture and preserved vascular flow. No suspiciou s lesions identified. CUL-DE-SAC: No significant fluid noted. IMPRESSION: 1. No sonographic evidence for an acute intrapelvic process. No intrauterine . Adnexal lesio n is identified. No free fluid in the cul-de-sac.
[2023-12-17] MEDS: MORPHINE SULFATE INJ 2 MG/ml SYRG IV PRN (16:08)
[2023-12-17] MEDS: SODIUM CHLORIDE 0.9% 1,000 ML IV SCH (16:47)
[2023-12-17 17:59] LABS: Hemoglobin 7.9 g/dL (12.2-16.2)
[2023-12-17 18:00] LABS: Hematocrit 25.2 % (36.0-46.0)
[2023-12-18] VITALS (9 sets, daily range): BP systolic 110–121; BP diastolic 69–89; PULSE 72–92; RESP 18–19; TEMP 98.1–99.7; O2SAT 96–100
[2023-12-18 00:40] LABS: Hematocrit 23.2 % (36.0-46.0); Hemoglobin 7.4 g/dL (12.2-16.2)
[2023-12-18 04:34] LABS: Hemoglobin 7.2 g/dL (12.2-16.2)
[2023-12-18 04:36] LABS: Hematocrit 22.6 % (36.0-46.0)
--- NOTE | 2023-12-18 15:41 | DVHPN2 ---
Subjective Patient still complaining of uterine contractions all those pelvic ultrasound shows no evidence of any edema knowledge of any tissue. Reviewed: Care Plan Changes from previous H/P or p: No Changes Objective Vitals Vital Signs Date Time Temp Pulse Resp B/P (MAP) Pulse Ox O2 Delivery O2 Flow Rate FiO2 12/18/23 15:35 76 18 114/67 12/18/23 13:00 98.4 99 98.4 12/17/23 07:45 Room Air* 0 21 Intake/Output Intake and Output 12/18/23 07:00 Intake Total 3870 ml Output Total 600 ml Balance 3270 ml Intake Oral 2750 ml IV Total 1120 ml Output Urine Total 600 ml # Voids 5 Exam HEENT pupils are reactive Neck was supple CV system and S2 regular rate and rhythm History by clear GI positive bowel sound Extremity no edema MEDICAL BILLING SERVICE no focal deficit Medications Current Medications Medications Dose Ordered Sig/Tyler Route Start Time Stop Time Status Last Admin Dose Admin Ondansetron HCl 4 mg Q6HPRN PRN IV 12/16/23 22:00 12/18/23 10:46 4 MG Acetaminophen 650 mg Q6HPRN PRN PO 12/16/23 22:00 Acetaminophen/ Hydrocodone Bitart 1 tab Q6HPRN PRN PO 12/16/23 22:00 12/18/23 10:33 1 TAB Pantoprazole Sodium 40 mg DAILY IV 12/17/23 10:00 12/18/23 10:33 40 MG Doxycycline Monohydrate 100 mg Q12HR PO 12/17/23 10:00 12/24/23 09:59 12/18/23 10:33 100 MG Metronidazole 500 mg Q12HR PO 12/17/23 10:00 12/24/23 09:59 12/18/23 10:33 500 MG Sodium Chloride 1,000 ml @ 120 mls/hr Q8H20M IV 12/17/23 15:15 12/18/23 10:34 120 MLS/HR Morphine Sulfate 2 mg Q4HPRN PRN IV 12/17/23 15:15 12/18/23 15:35 2 MG Laboratory Results Laboratory Tests 12/16/23 17:10 12/17/23 05:13 12/18/23 03:08 Urinalysis Test 12/16/23 16:51 Urine Color Light-brown (Yellow) Urine Clarity Turbid (Clear) H Urine pH 6.5 (5.0-9.0) Urine Specific [place] 1.026 (1.001-1.035) Urine Protein 1+ (Negative) H Urine Ketones Negative (Negative) Urine Blood 3+ /uL (Negative) H Urine Nitrite Negative (Negative) Urine Bilirubin Negative (Negative) Urine Urobilinogen Normal mg/dL (Negative) Urine Leukocyte Esterase Negative /uL (Negative) Urine RBC 1104 /hpf (0 - 4) Urine WBC 11 /hpf (0 - 5) Urine Squamous Epithelial Cells Mod /hpf (<5) Urine Bacteria None seen /hpf (None Seen) Urine Mucus Few (None Seen) Urine Glucose Normal mg/dL (Normal) Microbiology Microbiology Date/Time Source Procedure Growth Status 12/16/23 17:12 Blood Blood Culture - Preliminary NO GROWTH AFTER 24 HOURS OF INCUBATION. Resulted Assessment/Plan Assessment/Plan 73-year-old female with known history of iron deficiency anemia, recent miscarriage two weeks ago at [facility] presented to the hospital with shortness of breaths vaginal bleeding intermittently generalized body aches and fever found to have 1. Intractable lower abdominal pain with contractions, follow up Ob/gynecology 2. Fever rule out sepsis , suspected endometritis 3. Iron-deficiency anemia 4. Elevated D-dimer ruled out PE -continue pain meds as needed, follow up with OB gynecology has patient still has contractions -discharge plan once cleared by OB gynecology Plan discussed with: Patient My Orders Orders - ASIM GOETZ MD Procedure Category Date Status Time * Infectious Millie Ron CONS 12/17/23 Transmitted Louise Rizzo 16:19 Date of Service: Dec 18, 2023 Billing Provider: ASIM GOETZ MD Common Visit Codes: NOT BILLABLE ASIM GOETZ MD Dec 18, 2023 15:41
--- NOTE | 2023-12-18 19:08 | DVHINCON2 ---
Date of service: Dec 18, 2023 Family History: Anxiety disorder G8 SISTER Diabetes mellitus G8 MOTHER FHx: allergies G8 SISTER Hypertension G8 MOTHER G8 FATHER Allergies: Coded Allergies: Cephalexin (Verified Allergy, Unknown, 10/27/17) Facial Swelling Home Meds Active Scripts Hydrocodone-Acetaminophen (Hydrocodone Bitartrate/AC 5-325 mg) 1 Tab Tab, 1 TAB PO Q8HP PRN, #10 TAB Prov:ASIM GOETZ MD 12/19/23 Metronidazole (Metronidazole) 500 Mg Tab, 500 MG PO Q12HR for 5 Days, #10 TAB Prov:ASIM GOETZ MD 12/19/23 Doxycycline Monohydrate (Doxycycline Monohydrate) 100 Mg Tab, 100 MG PO Q12HR for 5 Days, #10 TAB Prov:ASIM GOETZ MD 12/19/23 Discontinued Reported Medications Vit W/ Ferrous Fumara ( One Daily) Daily Tab, 1 TAB PO DAILY, #90 TAB 3 Refills 08/05/17 Vital Signs Vital Signs Date Time Temp Pulse Resp B/P (MAP) Pulse Ox O2 Delivery O2 Flow Rate FiO2 12/18/23 16:52 98.3 72 18 118/74 (89) 99 98.3 12/18/23 08:00 Room Air* 0 21 Labs/Diagnostic Data Labs Test 12/18/23 03:08 12/17/23 11:55 12/17/23 05:13 12/16/23 22:16 Range/Units Hemoglobin 7.2 L 12.2-16.2 g/dL Hematocrit 22.6 L 36.0-46.0 % Beta HCG, Quantitative 9.8 H 1.5-4.2 mIU/mL White Blood Count 3.5 #L 4.4-10.8 10^3/uL Red Blood Count 3.19 L 4.0-5.20 10^6/uL Mean Corpuscular Volume 78.5 L 80.0-100.0 fL Mean Corpuscular Hemoglobin 23.7 L 28.0-32.0 pg Mean Corpuscular Hemoglobin Concent 30.2 L 32.0-36.0 g/dL Red Cell Distribution Width 17.7 H 11.8-14.3 % Platelet Count 249 140-450 10^3/uL Mean Platelet Volume 8.3 6.9-10.8 fL Neutrophils (%) (Auto) 37.0-80.0 % Lymphocytes (%) (Auto) 10.0-50.0 % Monocytes (%) (Auto) 0.0-12.0 % Basophils (%) (Auto) 0.0-2.0 % Neutrophils # (Auto) 1.6-8.6 10 ^3/uL Lymphocytes # (Auto) 0.4-5.4 10 ^3/uL Monocytes # (Auto) 0-1.3 10 ^3/uL Differential Total Cells Counted 100.0 100 Neutrophils % (Manual) 54 37.0-80.0 Band Neutrophils % (Manual) 1 Lymphocytes % (Manual) 35 10.0-50.0 Monocytes % (Manual) 10 0-12 Eosinophils % (Manual) 0 0-7 Basophils % (Manual) 0 0.0-2.0 Metamyelocytes % (manual) 0 Myelocytes % (Manual) 0 Promyelocytes % (Manual) 0 Blast Cells % (Manual) 0 Reactive Lymphocytes 0 Platelet Estimate Adequate Prothrombin Time 11.4 9.3-11.8 sec Prothrombin Time INR 1.08 0.9-1.15 Iron Level 38 L 50-170 ug/dL Total Iron Binding Capacity 421 250-425 ug/dL Percent Iron Saturation 9.0 L 15-50 % Ferritin 9.7 L 10-291 ng/mL Lactic Acid Level 1.6 0.4-2.0 mmol/L Test 12/16/23 18:21 12/16/23 17:10 12/16/23 16:51 Range/Units SARS-CoV-2 Antigen (Rapid) Negative NEGATIVE Eosinophils (%) (Auto) 0.3 0.0-7.0 % Eosinophils # (Auto) 0 0-0.8 10 ^3/uL Basophils # (Auto) 0 0-0.2 10 ^3/uL Nucleated Red Blood Cells 0.2 % D-Dimer, Quantitative 0.63 H 0.0-0.49 mg/L FEU Sodium Level 139 136-145 mmol/L Potassium Level 3.6 3.5-5.1 mmol/L Chloride Level 105 98-107 mmol/L Carbon Dioxide Level 26 20-31 mmol/L Anion Gap 8 5-15 Blood Urea Nitrogen 8 L 9-23 mg/dL Creatinine 0.83 0.550-1.02 mg/dL Glomerular Filtration Rate Calc 95 >90 mL/min BUN/Creatinine Ratio 9.6 L 10.0-20.0 Serum Glucose 123 H 74-106 mg/dL Calcium Level 9.2 8.7-10.4 mg/dL Urine Color Light-brown Yellow Urine Clarity Turbid H Clear Urine pH 6.5 5.0-9.0 Urine Specific [place] 1.026 1.001-1.035 Urine Protein 1+ H Negative Urine Ketones Negative Negative Urine Blood 3+ H Negative /uL Urine Nitrite Negative Negative Urine Bilirubin Negative Negative Urine Urobilinogen Normal Negative mg/dL Urine Leukocyte Esterase Negative Negative /uL Urine RBC 1104 0 - 4 /hpf Urine WBC 11 0 - 5 /hpf Urine Squamous Epithelial Cells Mod <5 /hpf Urine Bacteria None seen None Seen /hpf Urine Mucus Few None Seen Urine Glucose Normal Normal mg/dL Microbiology Date/Time Source Procedure Growth Status 12/16/23 17:12 Blood Blood Culture - Preliminary NO GROWTH AFTER 48 HOURS OF INCUBATION. Resulted Plan/Recommendation ASSESSMENT AND PLAN: ID Problem List: - recent miscarriage - medically induced with misoprostol on 11/21 - fever - abdominal pain - headaches - back pain - possible early onset pelvic inflammatory disease Assessment This is a 33 y.o. female with a past medical history of recent miscarriage, who presents with abdominal pain and fevers. She had a medically induced with misoprostol on 11/21 due to failed first trimester . After the initial event where she had abdominal pain and bleeding, things improved. But more recently, she started to have fevers, abdominal pain, and more bleeding, and because of that she became concerned and presented to the emergency room. Tmax 102F. No cough, no shortness of breath, no chest pain. She complains of headache and back pain. Denies any flank pain. Seen by lighting specialist. Pelvic ultrasound reveals empty uterus with 1 cm endometrial stripe. No evidence of retained tissue. Cervix is closed on ultrasound. HCG quantitative level is 10.9 mIU/mL. Plan: - Agree with gynecology recommendation of oral doxycycline and metronidazole (Flagyl) for seven days. - No acute concerns for other causes of fever and headaches, likely related to early onset pelvic inflammatory disease. - Follow up with [facility] in one week. - If fevers persist, can follow up with Infectious Disease in two weeks. - Will follow up on blood cultures. Isolation Precautions: standard Assessment and plan was discussed with the patient as written above Plan is subject to change pending incorporation of new incoming information/diagnostics. Updates may be added as addendum at the bottom (OR TOP) of this note Thank you for interesting consult. Infectious Disease will continue to follow. Please contact Infectious Disease for any questions or concerns. Gentry Rizzo M.D. [facility] Ph: ? Electronically signed by: Gentry Rizzo MD, 12/20/2023 History: The patient's chart and medications were reviewed in detail and the patient was seen and examined. History obtained from: patient Miss Becka Weston is a 33 y.o. female with a past medical history of recent miscarriage, who presents with abdominal pain and fevers one month after miscarriage. She had a medically induced with misoprostol on 11/21 due to failed first trimester . . After the initial event where she had abdominal pain and bleeding, things improved. But more recently she started to have fevers, abdominal pain, and more bleeding, and because of that she became concerned and presented to the emergency room. Tmax 102F. No cough, no shortness of breath, no chest pain. She complains of headache and back pain. Denies any flank pain. She had a light brown vaginal discharge. Was seen by lighting specialist. Pelvic ultrasound revealed empty uterus with 1 cm endometrial stripe. No evidence of retained tissue. Cervix is closed on ultrasound. HCG quantitative level is 10.9 mIU/mL. No prior surgical history. No prior gynecological history. No smoking. Occasional alcohol use. No IV drug use. Review of Systems: A complete 10 system review of systems was completed and negative except as noted in the HPI or here. ROS: - CONSTITUTIONAL: Reports fever and headache. - HEENT: Reports headache. Denies changes in vision and hearing. - RESPIRATORY: Denies cough and shortness of breath. - CV: Denies chest pain and palpitations. - GI: Reports abdominal pain. - : Reports light brown vaginal discharge. - MSK: Reports back pain. Denies flank pain. - SKIN: Denies rash and pruritus. - NEUROLOGICAL: Denies syncope. - PSYCHIATRIC: Denies recent changes in mood. Denies anxiety and depression. Past Medical History: Diagnosis Date Recent miscarriage - 11/22/2023 Medically induced with misoprostol - 11/22/2023 Past Surgical History: History reviewed. No pertinent surgical history. Home Medications: No home medications reported. Allergies: Allergies No Known Allergies Family History: Family History Problem Relation Anxiety disorder Sister Diabetes Mother Allergies Sister Hypertension Mother Hypertension Father Family Status Relation Name Status No partnership data on file Social History: Socioeconomic History Marital status: Not on file Number of children: Not on file Years of education: Not on file Highest education level: Not on file Occupational History Not on file Tobacco Use Smoking status: Never smoker Vaping Use Vaping status: Never Used Substance and Sexual Activity Alcohol use: Occasional alcohol use Drug use: Never Sexual activity: Not on file Objective: Vital Signs on Arrival: Temp: 102F?BP: 127/72?Pulse: 88?Resp: 14?SpO2: 99% on room air Most Recent Vital Signs: Temp: 99.9F?BP: 127/72?Pulse: 88?Resp: 14?SpO2: 99% on room air Admission Weight: Not on file Physical Exam: General: NAD Neck: Supple. No masses. HEENT: PERRL. Normal lids and conjunctiva. Moist mucous membranes. Oropharynx without lesions, exudates or excessive erythema. Normal appearance of the external aspects of the nose and ears. Heart: Regular rhythm, normal rate. No murmur. No lower extremity edema. Lungs: Normal respiratory effort. Clear to auscultation bilaterally. No wheezes. No crackles. Abdomen: Soft. Non-tender. Non-distended. Normal active bowel sounds. No masses or abdominal hernia. Msk: No digital cyanosis. Normal strength and tone in all 4 limbs Skin: Warm and dry, no rashes. Neuro: Alert. No facial droop or slurred speech. Extra-ocular movements intact. Sensation intact to soft touch in all 4 limbs. Psych: Appropriate mood. Full affect. Oriented to person, place, time, and situation. Lines: Active Lines No active lines. Diagnostic Studies: Available diagnostic studies were reviewed personally. Significant relevant results and findings are outlined below or addressed in the Assessment and Plan above. Pertinent Labs: - Lactate: 1.7 mmol/L - WBC: 6.3 K/uL - COVID test: Negative - Hemoglobin: 9.0 g/dL - HCG quantitative: 10.9 mIU/mL - Creatinine: 0.83 mg/dL - BUN: 8 mg/dL Pertinent Imaging: Recent Results (from the past 24 hour(s)) Pelvic Ultrasound - Impression IMPRESSION: - Empty uterus with 1 cm endometrial stripe. - No evidence of retained tissue. - Cervix is closed. Plan discussed with: Patient GENTRY RIZZO MD Dec 18, 2023 19:07
[2023-12-19] VITALS (7 sets, daily range): BP systolic 109–135; BP diastolic 67–88; PULSE 77–98; RESP 16–21; TEMP 98.1–98.6; O2SAT 98–100
[2023-12-19] MEDS: HYDROmorphone HCL 2 MG/ML VL/or syr IV PRN (09:44)
[2023-12-19 11:30] LABS: Hemoglobin 8.1 g/dL (12.2-16.2)
[2023-12-19] MEDS ORDERED: HYDR-4902 PO (16:44)
[2023-12-19] MEDS ORDERED: DOX100T PO (16:44)
[2023-12-19] MEDS ORDERED: MET500T PO (16:44)
--- NOTE | 2023-12-19 16:47 | DVHDS2 ---
Discharge Summary Date of Admission Dec 16, 2023 at 21:48 Date of Discharge: Dec 19, 2023 Labs/Diagnostic Data: Laboratory Results Test 12/19/23 10:56 12/17/23 11:55 12/17/23 05:13 12/16/23 22:16 Hemoglobin 8.1 g/dL (12.2-16.2) Hematocrit 26.0 % (36.0-46.0) Beta HCG, Quantitative 9.8 mIU/mL (1.5-4.2) White Blood Count 3.5 10^3/uL (4.4-10.8) Red Blood Count 3.19 10^6/uL (4.0-5.20) Mean Corpuscular Volume 78.5 fL (80.0-100.0) Mean Corpuscular Hemoglobin 23.7 pg (28.0-32.0) Mean Corpuscular Hemoglobin Concent 30.2 g/dL (32.0-36.0) Red Cell Distribution Width 17.7 % (11.8-14.3) Platelet Count 249 10^3/uL (140-450) Mean Platelet Volume 8.3 fL (6.9-10.8) Neutrophils (%) (Auto) % (37.0-80.0) Lymphocytes (%) (Auto) % (10.0-50.0) Monocytes (%) (Auto) % (0.0-12.0) Basophils (%) (Auto) % (0.0-2.0) Neutrophils # (Auto) 10 ^3/uL (1.6-8.6) Lymphocytes # (Auto) 10 ^3/uL (0.4-5.4) Monocytes # (Auto) 10 ^3/uL (0-1.3) Differential Total Cells Counted 100.0 (100) Neutrophils % (Manual) 54 (37.0-80.0) Band Neutrophils % (Manual) 1 Lymphocytes % (Manual) 35 (10.0-50.0) Monocytes % (Manual) 10 (0-12) Eosinophils % (Manual) 0 (0-7) Basophils % (Manual) 0 (0.0-2.0) Metamyelocytes % (manual) 0 Myelocytes % (Manual) 0 Promyelocytes % (Manual) 0 Blast Cells % (Manual) 0 Reactive Lymphocytes 0 Platelet Estimate Adequate Prothrombin Time 11.4 sec (9.3-11.8) Prothrombin Time INR 1.08 (0.9-1.15) Iron Level 38 ug/dL (50-170) Total Iron Binding Capacity 421 ug/dL (250-425) Percent Iron Saturation 9.0 % (15-50) Ferritin 9.7 ng/mL (10-291) Lactic Acid Level 1.6 mmol/L (0.4-2.0) Test 12/16/23 18:21 12/16/23 17:10 12/16/23 16:51 SARS-CoV-2 Antigen (Rapid) Negative (NEGATIVE) Eosinophils (%) (Auto) 0.3 % (0.0-7.0) Eosinophils # (Auto) 0 10 ^3/uL (0-0.8) Basophils # (Auto) 0 10 ^3/uL (0-0.2) Nucleated Red Blood Cells 0.2 % D-Dimer, Quantitative 0.63 mg/L FEU (0.0-0.49) Sodium Level 139 mmol/L (136-145) Potassium Level 3.6 mmol/L (3.5-5.1) Chloride Level 105 mmol/L (98-107) Carbon Dioxide Level 26 mmol/L (20-31) Anion Gap 8 (5-15) Blood Urea Nitrogen 8 mg/dL (9-23) Creatinine 0.83 mg/dL (0.550-1.02) Glomerular Filtration Rate Calc 95 mL/min (>90) BUN/Creatinine Ratio 9.6 (10.0-20.0) Serum Glucose 123 mg/dL (74-106) Calcium Level 9.2 mg/dL (8.7-10.4) Urine Color Light-brown (Yellow) Urine Clarity Turbid (Clear) Urine pH 6.5 (5.0-9.0) Urine Specific [place] 1.026 (1.001-1.035) Urine Protein 1+ (Negative) Urine Ketones Negative (Negative) Urine Blood 3+ /uL (Negative) Urine Nitrite Negative (Negative) Urine Bilirubin Negative (Negative) Urine Urobilinogen Normal mg/dL (Negative) Urine Leukocyte Esterase Negative /uL (Negative) Urine RBC 1104 /hpf (0 - 4) Urine WBC 11 /hpf (0 - 5) Urine Squamous Epithelial Cells Mod /hpf (<5) Urine Bacteria None seen /hpf (None Seen) Urine Mucus Few (None Seen) Urine Glucose Normal mg/dL (Normal) Other Laboratory Tests 12/19/23 10:56 12/17/23 05:13 12/16/23 17:10 Final Diagnosis/Problems List 73-year-old female with known history of iron deficiency anemia, recent miscarriage two weeks ago at [facility] presented to the hospital with shortness of breaths vaginal bleeding intermittently generalized body aches and fever found to have 1. Intractable lower abdominal pain with contractions, follow up Ob/gynecology 2. Fever rule out sepsis , suspected endometritis 3. Iron-deficiency anemia 4. Elevated D-dimer ruled out PE Discharge Disposition: Home Discharge Instruct/Medications Diet: Regular Activity: See Comment Activity comment: No driving, no signing legal documents, no playing on heavy machinery while on narcotics. Follow Up/Referral: Follow-up with PCP in 1-2 weeks Follow up with OB Gynecology in 1-2 weeks Medications: Doxycycline Flagyl [place] as prescribed Discharge Statement: "Patient was advised to return to the ER or call 911 if any headaches, dizziness, shortness of breath, chest pain, abdominal pain, bleeding, fevers, or worsening of medical condition. Patient was counseled about treatment plan, medications, possible side effects, patientverbalized understanding. All questions were answered to the best of my ability. This discharge took greater then 30 minutes in planning, reviewing documentation, counseling the patient, and discussing with other team members." ASSESSMENT ASSESSMENT Assessment 73-year-old female with known history of iron deficiency anemia, recent miscarriage two weeks ago at [facility] presented to the hospital with shortness of breaths vaginal bleeding intermittently generalized body aches and fever found to have 1. Intractable lower abdominal pain with contractions, follow up Ob/gynecology 2. Fever rule out sepsis , suspected endometritis 3. Iron-deficiency anemia 4. Elevated D-dimer ruled out PE ASIM GOETZ MD Dec 19, 2023 16:47
--- NOTE | 2023-12-20 09:25 | DVHPN2 ---
Consult Progress Note Date Seen: Dec 19, 2023 Subjective Patient reports: Feels better (no fevers, no abdominal pain) Objective vital signs Vital Sign Date Time Temp Pulse Resp B/P (MAP) Pulse Ox O2 Delivery O2 Flow Rate FiO2 12/19/23 18:02 98.5 98 17 98 12/19/23 17:57 110/71 12/19/23 08:00 Room Air* 0 21 Total Intake and Output 12/19/23 12/19/23 12/20/23 15:00 23:00 07:00 Intake Total 1300 ml Balance 1300 ml medications Physical Exam: General: NAD Neck: Supple. No masses. HEENT: PERRL. Normal lids and conjunctiva. Moist mucous membranes. Oropharynx without lesions, exudates or excessive erythema. Normal appearance of the external aspects of the nose and ears. Heart: Regular rhythm, normal rate. No murmur. No lower extremity edema. Lungs: Normal respiratory effort. Clear to auscultation bilaterally. No wheezes. No crackles. Abdomen: Soft. Non-tender. Non-distended. Normal active bowel sounds. No masses or abdominal hernia. Msk: No digital cyanosis. Normal strength and tone in all 4 limbs Skin: Warm and dry, no rashes. Neuro: Alert. No facial droop or slurred speech. Extra-ocular movements intact. Sensation intact to soft touch in all 4 limbs. Psych: Appropriate mood. Full affect. Oriented to person, place, time, and situation. laboratory and microbiology Laboratory Tests 12/19/23 10:56 12/17/23 05:13 12/16/23 17:10 Test 12/16/23 17:10 Range/Units Serum Glucose 123 H 74-106 mg/dL Problem List/Assessment/Plan Problem List/Assessment/Plan ASSESSMENT AND PLAN: ID Problem List: - recent miscarriage - medically induced with misoprostol on 11/21 - fever - abdominal pain - headaches - back pain - possible early onset pelvic inflammatory disease Assessment This is a 33 y.o. female with a past medical history of recent miscarriage, who presents with abdominal pain and fevers. She had a medically induced with misoprostol on 11/21 due to failed first trimester . After the initial event where she had abdominal pain and bleeding, things improved. But more recently, she started to have fevers, abdominal pain, and more bleeding, and because of that she became concerned and presented to the emergency room. Tmax 102F. No cough, no shortness of breath, no chest pain. She complains of headache and back pain. Denies any flank pain. Seen by crime scene photographer. Pelvic ultrasound reveals empty uterus with 1 cm endometrial stripe. No evidence of retained tissue. Cervix is closed on ultrasound. HCG quantitative level is 10.9 mIU/mL. Plan: - Agree with gynecology recommendation of oral doxycycline and metronidazole (Flagyl) for seven days. - No acute concerns for other causes of fever and headaches, likely related to early onset pelvic inflammatory disease. - Follow up with DENTAL [facility]ALG[facility] PROCESSOR in one week. - If fevers persist, can follow up with Infectious Disease in two weeks. - Will follow up on blood cultures. Isolation Precautions: standard Assessment and plan was discussed with the patient as written above Plan is subject to change pending incorporation of new incoming information/diagnostics. Updates may be added as addendum at the bottom (OR TOP) of this note Thank you for interesting consult. Infectious Disease will continue to follow. Please contact Infectious Disease for any questions or concerns. Gentry Rizzo M.D. [facility] Ph: ? Plan discussed with: Patient GENTRY RIZZO MD Dec 20, 2023 09:25
--- NOTE | 2023-12-20 09:53 | ECG ---
[facility] Test Date: 2023-12-16 Test Time: 16:16:14 Pat Name: PETER PEÑA Department: ER Room: 0216T A Gender: F [employer]: NICKOLAS : 1990 Requested By: MARIELOS DOUGHERTY Order Number: [id number] Reading MD: Measurements Intervals [place] Rate: 123 P: 69 WA: 139 QRS: 29 QRSD: 75 T: -84 QT: 282 QTc: 404 Interpretive Statements Sinus tachycardia Probable left atrial enlargement Low voltage, precordial leads Borderline repolarization abnormality Please click the below link to view image of tracing.
== END 2023-12-19 20:30 | disposition home or self-care (01) | DRG 720 ==
LOC: ER 16:04 → TELE 21:48 → TELE-CENTR 23:30
PROVIDERS: ADMIT Nurse Practitioner Family; ATTEND Internal Medicine
DX: A41.9 Sepsis, unspecified organism (principal); D50.9 Iron deficiency anemia, unspecified; E11.9 Type 2 diabetes mellitus without complications; I10 Essential (primary) hypertension; N71.9 Inflammatory disease of uterus, unspecified; N89.8 Other specified noninflammatory disorders of vagina; Z20.822 Contact with and (suspected) exposure to COVID-19; Z83.3 Family history of diabetes mellitus; Z82.49 Family history of ischemic heart disease and other diseases of the circulatory system; Z81.8 Family history of other mental and behavioral disorders; Z88.8 Allergy status to other drugs, medicaments and biological substances; Z79.899 Other long term (current) drug therapy
CPT/HCPCS: 36415; 71046; 71275; 76801; 76817; 80048; 81001; 82728; 83540; 83550; 83605; 84702; 85007; 85014; 85018; 85025; 85027; 85379; 85610; 87040; 87426; G0378; J2405; J2470

== ENCOUNTER 2024-03-29 10:15 | Emergency (ER) | payer MEDICAID ==
[~2024-03-29] VITALS: Ht 160 cm; Wt 72.1 kg
[~2024-03-29 10:15] MED LIST changes: +DOX100T PO; +HYDR-4902 PO; +MET500T PO; -PREN-96 PO
--- NOTE | 2024-03-29 10:42 | ED.PDOC ---
General HPI Comments 33 y/o F, presents to the ED for CC of vaginal bleeding. Patient states, she has been experiencing abnormal vaginal spotting with associated clots x2days. Patient relays, she had miscarried in December of 2023 and was hospitalized at [facility] as a result. Patient comments on her LMP being in January of 2024 and is unsure if she is currently . Patient denies abdominal pain, hematuria, vaginal discharge, back pain, nausea, or vomiting. No other associated symptom's, modifiers, recent injuries or sick contacts at this time. Time Seen by MD: 10:30 Primary Care Provider: UNKNOWN Reviewed notes: Nurses Notes, Medications, Allergies Allergies: Coded Allergies: Cephalexin (Verified Allergy, Unknown, 10/27/17) Facial Swelling Home Meds Active Scripts Hydrocodone-Acetaminophen (Hydrocodone Bitartrate/AC 5-325 mg) 1 Tab Tab, 1 TAB PO Q8HP PRN, #10 TAB Prov:ASIM GOETZ MD 12/19/23 Metronidazole (Metronidazole) 500 Mg Tab, 500 MG PO Q12HR for 5 Days, #10 TAB Prov:ASIM GOETZ MD 12/19/23 Doxycycline Monohydrate (Doxycycline Monohydrate) 100 Mg Tab, 100 MG PO Q12HR for 5 Days, #10 TAB Prov:ASIM GOETZ MD 12/19/23 Information Source: Patient Mode of Arrival: Ambulatory Inability to void: Moderate Timing: Days Duration: Since onset Prehospital treatment: None Onset: Spontaneous Symptoms: None History of: None Location: None Modifying factors: None associated signs and symptoms: None Past Medical History PAST MEDICAL HISTORY: Denies Surgical History: Denies all surgeries STOCK PULLER History: No Pertinent STOCK PULLER History Family History Family History: No family hx of HTN Social History Smoker: Non-Smoker Alcohol: Occasionally Drugs: Denies Drug Use Lives In: Home Constitutional: denies: chills, diaphoresis, fatigue, fever, malaise, sweats, weakness, others EENTM: denies: blurred vision, double vision, ear bleeding, ear discharge, ear drainage, ear pain, ear ringing, eye pain, eye redness, hearing loss, mouth pain, mouth swelling, nasal discharge, nose bleeding, nose congestion, nose pain, photophobia, tearing, throat pain, throat swelling, voice changes, others Respiratory: denies: cough, hemoptysis, orthopnea, SOB at rest, shortness of breath, SOB with excertion, stridor, wheezing, others Cardiovascular: denies: chest pain, dizzy spells, diaphoresis, Dyspnea on exertion, edema, irregular heart beat, left arm pain, lightheadedness, palpitations, PND, syncope, others Gastrointestinal: denies: abdomen distended, abdominal pain, blood streaked bowels, constipated, diarrhea, dysphagia, difficulty swallowing, hematemesis, melena, nausea, poor appetite, poor fluid intake, rectal bleeding, rectal pain, vomiting, others Genitourinary: reports: abnormal vagina bleeding; denies: burning, dyspareunia, dysuria, flank pain, frequency, hematuria, incontinence, pain, , vagina discharge, urgency, others Neurological: denies: dizziness, fainting, headache, left sided numbness, left sided weakness, numbness, paresthesia, pre-existing deficit, right sided numbness, right sided weakness, seizure, speech problems, tingling, tremors, weakness, others Musculoskeletal: denies: back pain, gout, joint pain, joint swelling, muscle pain, muscle stiffness, neck pain, others Integumetry: denies: bruises, change in color, change in hair/nails, dryness, laceration, lesions, lumps, rash, wounds, others Allergic/Immunocompromised: denies: Difficulty Healing, Frequent Infections, Hives, Itching, others Hematologic/Lymphatic: denies: anemia, blood clots, easy bleeding, easy bruising, swollen glands, others Endocrine: denies: excessive hunger, excessive sweating, excessive thirst, excessive urination, flushing, intolerance to cold, intolerance to heat, unexplained weight gain, unexplained weight loss, others Psychiatric: denies: anxiety, bipolar disorder, depression, hopeless, panic disorder, schizophrenia, sleepless, suicidal, others All Other Systems: Reviewed and Negative Physical Exam General Appearance: Moderate Distress HEENT: Normal ENT Inspection, Pharynx Normal, TMs Normal Neck: Full Range of Motion, Non-Tender, Normal, Normal Inspection Respiratory: Chest Non-Tender, Lungs Clear, No Accessory Muscle Use, No Respiratory Distress, Normal Breath Sounds Cardiovascular: No Edema, No JVD, No Murmur, No Gallop, Normal Peripheral Pulses, Regular Rate/Rhythm Breast Exam: Deferred Gastrointestinal: No Organomegaly, Non Tender, No Pulsatile Mass, Normal Bowel Sounds, Soft Genitalia: Deferred Pelvic: Deferred Rectal: Deferred Extremities: No calf tenderness, Normal capillary refill, Normal inspection, Normal range of motion, Non-tender, No pedal edema Musculoskeletal : Apperance: Normal Neurologic: Alert, iphone developer II-XII nml as Tested, No Motor Deficits, Normal Affect, Normal Mood, No Sensory Deficits Cerebellar Function: Normal Reflexes: Normal Skin: Dry, Normal Color, Warm Peripheral Pulses: 3+ Radial (R), 3+ Radial (L) Lymphatic: No Adenopathy Was a procedure done? Was a procedure done?: No Differential Diagnosis Kidney stone (Female): Musculoskeletal pain, Urinary obstruction, Urolithiasis Urinary Problem (Female): Ectopic , Intrauterine X-Ray, Labs, Meds, VS Vital Signs Date Time Temp Pulse Resp B/P (MAP) Pulse Ox O2 Delivery O2 Flow Rate FiO2 03/29/24 10:34 98.4 108 16 132/82 (99) 100 Lab Test 03/29/24 11:06 Range/Units Beta HCG, Quantitative 81008.6 H 1.5-4.2 mIU/mL Patient alert. Complaining of vaginal spotting. Vitals stable. Answering all questions. Has multiple pregnancies. Few months ago she had a miscarriage. Ultrasound reviewed does show live . States that she is feeling much better. Explained to her subchorionic hematoma. Explained to the patient. Was told to follow up with her OBGYN. Was told to follow up with her primary care physician. Was told to come back if there is any problem. Time of 1ST Reevaluation: 11:00 Reevaluation 1ST: Unchanged Patient Education/Counseling: Diagnosis, Treatment Family Education/Counseling: No Family Present Additional Information I reviewed the following notes from patient's past medical history: 12/16/23 ABDOMINAL CRAMPING, ACUTE ANEMIA The following tests were ordered, and results were reviewed by me: UA, BETA H CG, QUANTITATIVE, OB ULTRASOUND I reviewed and agreed with the following test results read by other providers: OB ULTRASOUND I discussed treatment and results with medical personnel and: PATIENT Departure 1 Departure Time of Disposition: 10:53 Impression: Primary Impression: Vaginal bleeding affecting early Additional Impression: Subchorionic hematoma Qualified Codes: O41.8X99 - Other specified disorders of amniotic fluid and membranes, unspecified trimester, other fetus; O46.8X9 - Other antepartum hemorrhage, unspecified trimester Disposition: 01 HOME / SELF CARE / HOMELESS Condition: Good Discharged With: Self Critical Care Note Critical Care Time?: No Stability Stability form required: No Heart Score Heart Score: Heart Score Response (Comments) Value History N/A 0 EKG N/A 0 Age N/A 0 Risk Factors N/A 0 Troponin N/A 0 Total 0 I personally scribed for THONY PAVON MD ([email or web address]) on 03/29/24 at 10:42. Electronically submitted by Bobbi Castillo ([email or web address]). I personally scribed for THONY PAVON MD ([email or web address]) on 03/29/24 at 10:57. Electronically submitted by Bobbi Castillo ([email or web address]). THONY PAVON MD Mar 29, 2024 10:42
--- NOTE | 2024-03-29 13:36 | DVH ---
OB ULTRASOUND <14 WEEKS: HISTORY: Cramping TECHNIQUE: Multiple real-time grayscale sonographic images of the pelvis with duplex Doppler color f low, spectral and M-mode analysis. TRANSDUCERS: Transabdominal COMPARISON: US OB ULTRASOUND COMP LESS 14WKS on DOS: 12/17/23, US OB ULTRASOUND COMP LESS 14WKS on DOS : 12/16/23 FINDINGS: The uterus measures 13.1 x 6.4 x 7.8 cm The cervix is not visualized Right ovary measures 4.0 x 3.4 x 3.6 cm with normal Doppler color flow. Right ovarian cyst measures 3 .1 cm. Left ovary measures 3.1 x 3.1 x 2.3 cm with normal Doppler color flow. IUP single fetus at 9 weeks and 2 days average ultrasound age based on mean crown-rump length of 2.4 cm and gestational sac size of 3.9 cm heart rate detected at 172 beats per minute. Yolk sac is present. Amniotic fluid is subjectively within normal limits Latoya-gestational space: Small subchorionic hematoma is present measuring 2.0 cm. IMPRESSION: IUP single live fetus 9 weeks and 2 days AUA corresponding to an HECTOR of 10/30/2024. Small subchorionic hematoma measures 2.0 cm. Close clinical and sonographic follow-up advised.
[2024-03-29 15:27] VITALS: BP 109/65; PULSE 81; RESP 17; TEMP 98.5; O2SAT 100
== END 2024-03-29 15:28 | disposition home or self-care (01) ==
LOC: ER 10:15
DX: O46.8X1 Other antepartum hemorrhage, first trimester (principal); R10.2 Pelvic and perineal pain; Z3A.00 Weeks of gestation of pregnancy not specified; Z88.1 Allergy status to other antibiotic agents
CPT/HCPCS: 36415; 76801; 84702

== ENCOUNTER 2024-09-19 06:44 | Observation (INO) | payer MEDICAID ==
--- NOTE | 2024-09-19 11:48 | DVH ---
BIOPHYSICAL PROFILE HISTORY: AMA/IUGR Comparison Study: US OB ULTRASOUND COMP LESS 14WKS on DOS: 03/29/24, US OB ULTRASOUND COMP LESS 14WKS on DOS: 12/17/23, US OB ULTRASOUND COMP LESS 14WKS on DOS: 12/16/23, OB TRANS VAGINAL US on DOS: 1, OB TRANS VAGINAL US on DOS: 05/16/20 TECHNIQUE: Multiple real-time grayscale sonographic images through the gravid uterus of the fetus wi th duplex Doppler color flow and M-mode spectral analysis FINDINGS: BIOPHYSICAL PROFILE: breathing score: 2 movement score: 2 tone score: 2 Quantitative JENNA score: 2 (JENNA: 18.6 Cm.) Total score: 8 The cervix is not visualized Single live fetus in cephalic presentation. heart rate 168 beats per minute. Posterior placenta without previa or abruption IMPRESSION: Biophysical profile score: 8
[2024-09-19] MEDS ORDERED: PREN-96 PO (11:56)
--- NOTE | 2024-09-19 14:08 | DVHDS2 ---
Physician Discharge Progress N Final Diagnosis: ama,iuge 35wks Operations or Procedures: Operations or Procedures nst reactive reviwqed,sono Condition on Discharge: Good Disposition: Home Discharge Instructions: Diet: Regular Activity: No Restrictions, As Tolerated Medications: na Follow Up Care: Specialist: 1w Discharge Statement: "Patient was advised to return to the ER or call 911 if any headaches, dizziness, shortness of breath, chest pain, abdominal pain, bleeding, fevers, or worsening of medical condition. Patient was counseled about treatment plan, medications, possible side effects, patientverbalized understanding. All questions were answered to the best of my ability. This discharge took greater then 30 minutes in planning, reviewing docu mentation, counseling the patient, and discussing with other team members." Visit Coding OBGYN Date of Service: Sep 19, 2024 Billing Provider: LIDIA CM DO OPERATIONS AGENT Common Visit Codes: 39573-[id number] INP/OBS CARE (HIGH) OPERATIONS AGENT Procedure Codes: 08397-52- NON-STRESS TEST LIDIA CM DO Sep 19, 2024 14:08
== END 2024-09-19 12:17 | disposition home or self-care (01) ==
LOC: UNDOADMOB 10:54 → LDRP 10:54
PROVIDERS: ADMIT Obstetrics & Gynecology; ATTEND Obstetrics & Gynecology
DX: O36.5930 Maternal care for other known or suspected poor fetal growth, third trimester, not applicable or unspecified (principal); O09.523 Supervision of elderly multigravida, third trimester; Z3A.35 35 weeks gestation of pregnancy; Z79.899 Other long term (current) drug therapy
CPT/HCPCS: 59025; 76819; 81002; 94760; G0378

== ENCOUNTER 2024-09-22 13:20 | Observation (INO) | payer MEDICAID ==
[~2024-09-22 13:20] MED LIST changes: +PREN-96 PO
--- NOTE | 2024-09-22 14:33 | DVH ---
BIOPHYSICAL PROFILE HISTORY: IUGR/AMA Comparison Study: US BIOPHYSICAL PROFILE on DOS: 09/19/24, US OB ULTRASOUND COMP LESS 14WKS on DOS: , US OB ULTRASOUND COMP LESS 14WKS on DOS: 12/17/23, US OB ULTRASOUND COMP LESS 14WKS on DOS: 12/16/23, OB TRANS VAGINAL US on DOS: 05/27/20 TECHNIQUE: Multiple real-time grayscale sonographic images through the gravid uterus of the fetus wi th duplex Doppler color flow and M-mode spectral analysis FINDINGS: BIOPHYSICAL PROFILE: breathing score: 2 movement score: 2 tone score: 2 Quantitative JENNA score: 2 (JENNA: 15.3 Cm.) Total score: 8 The cervix is not visualized Single live fetus in cephalic presentation. heart rate 138 beats per minute. Posterior placenta without previa or abruption IMPRESSION: Biophysical profile score: 8
--- NOTE | 2024-09-22 19:43 | DVHDS2 ---
Physician Discharge Progress N Final Diagnosis: Encounter for surveillance Secondary Diagnosis: AMA IUGR Operations or Procedures: Operations or Procedures NST/BPP JENNA all Normal SONO reviewed NOT in labor Commentary: Commentary PATIENT: PETER PEÑAYACCT: [id number] UNIT: [id number] 5 : 1990 LOC: [facility] ROOM / BED: TRIAGE3 / A AGE / SEX: 33 / F ADM STATUS: ADM IN SERVICE 1348 ORDERING PHYSICIAN: MIO PUENTE DO PROCEDURE(s): BPP - BIOPHYSICAL PROFILE REASON: IUGR/AMA ORDER NUMBER(s): [id number], ACCESSION NUMBER(s): [id number] BIOPHYSICAL PROFILE HISTORY: IUGR/AMA Comparison Study: US BIOPHYSICAL PROFILE on DOS: 09/19/24, US OB ULTRASOUND COMP LESS 14WKS on DOS: 03/29/24, US OB ULTRASOUND COMP LESS 14WKS on DOS: 12/17/23, US OB ULTRASOUND COMP LESS 14WKS on DOS: 12/16/23, OB TRANS VAGINAL US on DOS: 05/27/20 TECHNIQUE: Multiple real-time grayscale sonographic images through the gravid uterus of the fetus with duplex Doppler color flow and M-mode spectral analysis FINDINGS: BIOPHYSICAL PROFILE: breathing score: 2 movement score: 2 tone score: 2 Quantitative JENNA score: 2 (JENNA: 15.3 Cm.) Total score: 8 The cervix is not visualized Single live fetus in cephalic presentation. heart rate 138 beats per minute. Posterior placenta without previa or abruption IMPRESSION: Biophysical profile score: 8 ATED BY: ARSALAN THAKKAR MD DICTATED DATE/TIME: 09/22/24 1430 Condition on Discharge: Stable Disposition: Home Discharge Instructions: Diet: Regular Activity: No Restrictions, As Tolerated Follow Up/Referral: as scheduled Medications: N/A Follow Up Care: Discharge Statement: "Patient was advised to return to the ER or call 911 if any headaches, dizziness, shortness of breath, chest pain, abdominal pain, bleeding, fevers, or worsening of medical condition. Patient was counseled about treatment plan, medications, possible side effects, patientverbalized understanding. All questions were answered to the best of my ability. This discharge took greater then 30 minutes in planning, reviewing documentation, counseling the patient, and discussing with other team members." Visit Coding OBGYN Date of Service: Sep 22, 2024 Billing Provider: MIO PUENTE DO PETROPHYSICIST Common Visit Codes: 77197-QLY/OBS SAME DATE (HIGH) PETROPHYSICIST Procedure Codes: 66036-38- NON-STRESS TEST MIO PUENTE DO Sep 22, 2024 19:43
== END 2024-09-22 14:56 | disposition home or self-care (01) ==
LOC: LDRP 13:20
PROVIDERS: ADMIT Obstetrics & Gynecology; ATTEND Obstetrics & Gynecology
DX: O36.5930 Maternal care for other known or suspected poor fetal growth, third trimester, not applicable or unspecified (principal); Z3A.35 35 weeks gestation of pregnancy; Z98.890 Other specified postprocedural states; Z79.899 Other long term (current) drug therapy
CPT/HCPCS: 59025; 76819; 81002; 94760; G0378

== ENCOUNTER 2024-09-23 12:16 | Observation (INO) | payer MEDICAID ==
--- NOTE | 2024-09-23 14:20 | DVHDS2 ---
Physician Discharge Progress N Final Diagnosis: Encounter for surveillance Secondary Diagnosis: IUGR AMA Operations or Procedures: Operations or Procedures NST Condition on Discharge: Stable Disposition: Home Discharge Instructions: Diet: Regular Activity: No Restrictions, As Tolerated Follow Up/Referral: as scheduled Medications: NA Follow Up Care: Discharge Statement: "Patient was advised to return to the ER or call 911 if any headaches, dizziness, shortness of breath, chest pain, abdominal pain, bleeding, fevers, or worsening of medical condition. Patient was counseled about treatment plan, medications, possible side effects, patientverbalized understanding. All questions were answered to the best of my ability. This discharge took greater then 30 minutes in planning, reviewing documentation, counseling the patient, and discussing with other team members." Visit Coding OBGYN Date of Service: Sep 23, 2024 Billing Provider: MIO PUENTE DO EMPLOYEE RELATION MANAGER Common Visit Codes: 58666-RPC/OBS SAME DATE (MOD) EMPLOYEE RELATION MANAGER Procedure Codes: 31252-58- NON-STRESS TEST MIO PUENTE DO Sep 23, 2024 14:20
== END 2024-09-23 13:46 | disposition home or self-care (01) ==
LOC: LDRP 12:16
PROVIDERS: ATTEND Obstetrics & Gynecology
DX: O36.5930 Maternal care for other known or suspected poor fetal growth, third trimester, not applicable or unspecified (principal); Z3A.36 36 weeks gestation of pregnancy; Z98.890 Other specified postprocedural states; Z79.899 Other long term (current) drug therapy
CPT/HCPCS: 59025; 81002; 94760; G0378

== ENCOUNTER 2024-09-23 13:51 | Emergency (ER) | payer MEDICAID ==
[~2024-09-23] VITALS: Ht 157.5 cm; Wt 79.0 kg
--- NOTE | 2024-09-23 14:51 | ED.PDOC ---
History of Present Illness(SKN HPI Comments 33-year-old female presents with the concerns of a leaking mass in the left upper quadrant. Onset has been ongoing for six years. Two weeks ago she noticed a foul odor and initially thought it was breast milk leaking. Today they observed brown dark liquid and hard drainage from the mass No other complaint or concerns. Denies any abdominal pain fevers chills nausea vomiting diarrhea Chief Complaint: Abscess Time Seen by MD: 13:54 Primary Care Provider: NONE History of Present Illness: Nurses Notes, Medications, Allergies Allergies: Coded Allergies: Cephalexin (Verified Allergy, Unknown, 10/27/17) Facial Swelling Home Meds Active Scripts Hydrocodone-Acetaminophen (Hydrocodone Bitartrate/AC 5-325 mg) 1 Tab Tab, 1 TAB PO Q8HP PRN, #10 TAB Prov:ASIM GOETZ MD 12/19/23 Metronidazole (Metronidazole) 500 Mg Tab, 500 MG PO Q12HR for 5 Days, #10 TAB Prov:ASIM GOETZ MD 12/19/23 Doxycycline Monohydrate (Doxycycline Monohydrate) 100 Mg Tab, 100 MG PO Q12HR for 5 Days, #10 TAB Prov:ASIM GOETZ MD 12/19/23 Reported Medications Vit W/ Ferrous Fumara ( One Daily) Daily Tab, 1 TAB PO DAILY, #90 TAB 3 Refills 09/19/24 Information Source: Patient Mode of Arrival: Ambulatory Past Medical History PAST MEDICAL HISTORY: Denies Surgical History: Denies all surgeries SHEET ROCK INSTALLER History: No Pertinent SHEET ROCK INSTALLER History Family History Family History: No family hx of HTN Social History Smoker: Non-Smoker Alcohol: Occasionally Drugs: Denies Drug Use Lives In: Home All Other Systems: Reviewed and Negative (per hpi) Physical Exam General Appearance: No Apparent Distress, Normal HEENT: Normal ENT Inspection, Pharynx Normal, TMs Normal Neck: Full Range of Motion, Non-Tender, Normal, Normal Inspection Respiratory: Chest Non-Tender, Lungs Clear, No Accessory Muscle Use, No Respiratory Distress, Normal Breath Sounds Cardiovascular: No Edema, No JVD, No Murmur, No Gallop, Normal Peripheral Pulses, Regular Rate/Rhythm Breast Exam: Deferred Gastrointestinal: No Organomegaly, Non Tender, No Pulsatile Mass, Normal Bowel Sounds, Soft Genitalia: Deferred Pelvic: Deferred Rectal: Deferred Extremities: No calf tenderness, Normal capillary refill, Normal inspection, Normal range of motion, Non-tender, No pedal edema Musculoskeletal : Apperance: Normal Neurologic: Alert, manager of supply chain II-XII nml as Tested, No Motor Deficits, Normal Affect, Normal Mood, No Sensory Deficits Cerebellar Function: Normal Reflexes: Normal Skin: Dry, Normal Color, Warm Lymphatic: No Adenopathy Was a procedure done? Was a procedure done?: No Differential Diagnosis (INTG) Differential Diagnosis: Other X-Ray, Labs, Meds, VS Vital Signs Date Time Temp Pulse Resp B/P (MAP) Pulse Ox O2 Delivery O2 Flow Rate FiO2 09/23/24 14:58 97.6 84 18 122/79 (93) 98 97.6 09/23/24 14:58 84 18 98 Room Air 09/23/24 13:52 97.6 84 18 122/79 9 97.6 X-Ray, Labs, Meds, VS Comment On reevaluation, patient had symptomatic improvement. Patient is stable for discharge at this time. External notes reviewed. Test results and diagnostic imaging interpreted. All diagnostic findings, discharge care, education and instructions provided Follow-up with PCP in 2 to 3 days Patient verbalized understanding and agreed to treatment plan Vital signs stable, afebrile, no acute distress noted Patient ambulatory with strong steady gait Advised to return precautions for any new or worsening symptoms, return to ER immediately for re-evaluation Patient is aware that the purpose of this visit was for an acute medical emergency requiring emergent stabilization. Chronic conditions, including malignancies have not been ruled out. Patient is instructed to follow up with PCP as directed and discharge instructions for continued care and workup. If unable to arrange follow-up, patient is to return to the emergency department for reassessment. Patient (parent or legal guardian if applicable) was given verbal and written discharge instructions and acknowledges understanding. Time of 1ST Reevaluation: 14:30 Reevaluation 1ST: Improved Patient Education/Counseling: Diagnosis, Treatment Family Education/Counseling: Diagnosis, Treatment SEPSIS Sepsis Screen Date sepsis recognized/suspect: Sep 23, 2024 Time Sepsis recognized/suspect: 1354 Recent Procedure: No On Antibiotic Therapy: No Respiratory Rate >20: No Heart Rate >90: No Temp<36 C (96.8 F) or >38.3 C: No SBP <90 or MAP <65 mmHG: No New Acute Mental Status Change: No Is the patient on CPAP, BIPAP,: No Vital Signs Date Time Temp Pulse Resp B/P (MAP) Pulse Ox O2 Delivery O2 Flow Rate FiO2 09/23/24 14:58 97.6 84 18 122/79 (93) 98 97.6 09/23/24 14:58 84 18 98 Room Air 09/23/24 13:52 97.6 84 18 122/79 9 97.6 Departure 1 Departure Time of Disposition: 14:50 Impression: Primary Impression: Sebaceous cyst Disposition: 01 HOME / SELF CARE / HOMELESS Condition: Stable Discharged With: Self Critical Care Note Critical Care Time?: No Stability Stability form required: No Heart Score Heart Score: Heart Score Response (Comments) Value History N/A 0 EKG N/A 0 Age N/A 0 Risk Factors N/A 0 Troponin N/A 0 Total 0 LIONEL DURAN NP Sep 23, 2024 14:51
[2024-09-23 14:58] VITALS: BP 122/79; PULSE 84; RESP 18; TEMP 97.6; O2SAT 98
== END 2024-09-23 15:03 | disposition home or self-care (01) ==
LOC: ER 13:51
DX: L72.3 Sebaceous cyst (principal); Z88.1 Allergy status to other antibiotic agents

== ENCOUNTER 2024-09-25 06:54 | Observation (INO) | payer MEDICAID ==
[2024-10-09] MEDS ORDERED: PREN-96 PO (16:41)
--- NOTE | 2024-10-09 18:10 | DVHDS2 ---
Physician Discharge Progress N Final Diagnosis: not in labor sheeba diez contractions Operations or Procedures: Operations or Procedures S: 33yo IUP@38.2wks presents to OB triage with c/o UCs for the last 2 days, feels them in her lower abdomen. Denies LOF/VB/BABCOCK/vision changes/RUQ pain. Endorses +FM. PNC with Dr. Barker, uncomplicated. O: VSS NST reactive TOCO: UCs x2 SVE by RN: / A: 33yo IUP@38.2wks not in labor sheeba diez contractions P: D/C home FKC/PreE/Labor precautions reviewed f/u with Dr. Barker in office as scheduled Condition on Discharge: Stable Disposition: Home Discharge Instructions: Diet: Regular Activity: No Restrictions, As Tolerated Medications: see med list Follow Up Care: Specialist: f/u with Dr. Barker in office as scheduled Discharge Statement: "Patient was advised to return to the ER or call 911 if any headaches, dizziness, shortness of breath, chest pain, abdominal pain, bleeding, fevers, or worsening of medical condition. Patient was counseled about treatment plan, medications, possible side effects, patientverbalized understanding. All questions were answered to the best of my ability. This discharge took greater then 30 minutes in planning, reviewing documentation, counseling the patient, and discussing with other team members." Visit Coding OBGYN Date of Service: Oct 09, 2024 Billing Provider: LIANA GAR CNM GANG BOSS Common Visit Codes: 31820-[id number] OBS CARE (MOD) GANG BOSS Procedure Codes: 46031-52- NON-STRESS TEST LIANA GAR CNM Oct 09, 2024 18:10
== END 2024-10-09 16:43 | disposition home or self-care (01) ==
LOC: LDRP 10-09 15:31 → UNDOADMOB 10-09 15:31 → LDRP 10-09 15:38
PROVIDERS: ADMIT Obstetrics & Gynecology; ATTEND Obstetrics & Gynecology
DX: O47.1 False labor at or after 37 completed weeks of gestation (principal); Z3A.38 38 weeks gestation of pregnancy; Z98.890 Other specified postprocedural states
CPT/HCPCS: 59025; 81002; 94760; G0378

== ENCOUNTER 2024-10-15 17:00 | Observation (INO) | payer MEDICAID ==
--- NOTE | 2024-10-16 06:14 | DVHDS2 ---
Discharge Summary Date of Admission Oct 15, 2024 at 17:00 Date of Discharge: Oct 15, 2024 Admitting Diagnosis Thirty-nine weeks rule out labor feeling abdominopelvic contraction like pain denies leaking Wounds: None Labs/Diagnostic Data: None Brief Hx & Hospital Course: NST BPP performed reassuring no sign of labor or cervical change no sign of ruptured membranes Consults/Reason for consult None Operations or Procedures NST BPP reassuring Condition at Discharge: Good Final Diagnosis/Problems List 39 weeks contractions no labor reassuring heart tones Discharge Disposition: Home Discharge Instruct/Medications Diet: Regular Activity: No Restrictions, As Tolerated Follow Up/Referral: Follow up as scheduled kick counts labor precautions Scheduled Doxycycline Monohydrate (Doxycycline Monohydrate), 100 MG PO Q12HR Metronidazole (Metronidazole), 500 MG PO Q12HR Vit W/ Ferrous Fumara ( One Daily), 1 TAB PO DAILY, (Reported) Scheduled PRN Hydrocodone-Acetaminophen (Hydrocodone Bitartrate/AC 5-325 mg), 1 TAB PO Q8HP PRN Discharge Statement: "Patient was advised to return to the ER or call 911 if any headaches, dizziness, shortness of breath, chest pain, abdominal pain, bleeding, fevers, or worsening of medical condition. Patient was counseled about treatment plan, medications, possible side effects, patientverbalized understanding. All questions were answered to the best of my ability. This discharge took greater then 30 minutes in planning, reviewing documentation, counseling the patient, and discussing with other team members." ASSESSMENT ASSESSMENT Assessment Visit Coding OBGYN Date of Service: Oct 15, 2024 Billing Provider: TI VASQUEZ DO GENERAL ASSISTANT Common Visit Codes: 56686-ZKW/OBS SAME DATE (LOW), 35070-TBC/OBS SAME DATE (MOD), 75998-LPI/OBS SAME DATE (HIGH) GENERAL ASSISTANT Procedure Codes: 42648-86- NON-STRESS TEST TI VASQUEZ DO Oct 16, 2024 06:14
== END 2024-10-15 18:09 | disposition home or self-care (01) ==
LOC: LDRP 17:00
PROVIDERS: ADMIT Obstetrics & Gynecology; ATTEND Obstetrics & Gynecology
DX: O62.9 Abnormality of forces of labor, unspecified (principal); Z3A.39 39 weeks gestation of pregnancy; Z98.890 Other specified postprocedural states
CPT/HCPCS: 59025; 81002; 94760; G0378

== ENCOUNTER 2024-10-18 08:27 | Inpatient (IN) | payer MEDICAID ==
[~2024-10-18] VITALS: Ht 162.6 cm; Wt 77.1 kg
[2024-10-18] MEDS ORDERED: LIDOCAINE 2%HCL (LOCAL ANESTH.) INJ 20ML MDV IJ PRN (08:45)
[2024-10-18] MEDS ORDERED: PENICILLIN G POT 5MIL/D5 50ML 50 ML IV ONE (08:45)
[2024-10-18] MEDS ORDERED: BUTORPHANOL TARTRATE 2 MG/1 ML VIAL IV PRN ×2 (08:45)
[2024-10-18 09:23] LABS: Hematocrit 37.7 % (36.0-46.0); Hemoglobin 13.2 g/dL (12.2-16.2); Mean Corpuscular Hemoglobin 31.1 pg (28.0-32.0); Mean Corpuscular Volume 89.0 fL (80.0-100.0); Nucleated Red Blood Cells % 0.1 %
[2024-10-18 09:42] LABS: Alanine Aminotransferase 19 U/L (7-40); Albumin 3.7 g/dL (3.2-4.8); Alkaline Phosphatase 107 U/L (46-116); Anion Gap 9 (5-15); Bilirubin, Total 0.4 mg/dL (0.2-1.0); Calcium 8.9 mg/dL (8.7-10.4); Carbon Dioxide 25 mmol/L (20-31); Chloride 107 mmol/L (98-107); Sodium 141 mmol/L (136-145); Total Protein 6.3 g/dL (5.7-8.2)
[2024-10-18 09:48] LABS: BUN/Creatinine Ratio 8.5 (10.0-20.0); Blood Urea Nitrogen < 5 mg/dL (9-23); Glucose 73 mg/dL (74-106); INR 0.95 (0.9-1.15); Partial Thromboplastin Time 29.4 SEC (24.5-34.5); Potassium 3.4 mmol/L (3.5-5.1); Prothrombin Time 10.1 sec (9.3-11.8)
[2024-10-18 10:06] LABS: Urine Protein, UAD Negative (Negative)
[2024-10-18] MEDS: LACTATED RINGER'S 1,000 ML IV SCH (10:17)
[2024-10-18] MEDS: DERMOPLAST 60ML BOTTLE TOP PRN (10:17)
[2024-10-18] MEDS: PHISODERM TOP SOLN 240ML BTL TOP PRN (10:18)
[2024-10-18] MEDS: WITCH HAZEL-GLYCERIN PAD TOP PRN (10:18)
[2024-10-18 10:29] LABS: Amphetamine Screen, Urine Neg (NEGATIVE); Barbiturate Scree,Urine Neg (NEGATIVE); Benzodiazephine Screen, Urine Neg (NEGATIVE); Cannabinoid Screen, Urine Neg (NEGATIVE); Cocaine Screen, Urine Neg (NEGATIVE); Opiate Scree,Urine Neg (NEGATIVE); Phencyclidine Screen, Urine Neg (NEGATIVE)
--- NOTE | 2024-10-18 11:38 | DVHHP ---
ADMIT DATE: 10/18/2024 CHIEF COMPLAINT: Desires induction of labor. HISTORY OF PRESENT ILLNESS: The patient is a 33-year-old 6, para 3 with EDC 10/21/2024. Estimated gestational age of 39 weeks, admitted for induction of labor. The patient is requesting induction of labor. She understands risks, complications and alternatives. Last rate was 612. PAST MEDICAL HISTORY: None. PAST SURGICAL HISTORY: None. SOCIAL HISTORY: None. FAMILY HISTORY: None. OBSTETRIC AND GYNECOLOGIC HISTORY: Three normal vaginal deliveries. REVIEW OF SYSTEMS: Consistent with HPI. PHYSICAL EXAMINATION: VITAL SIGNS: Stable, afebrile. HEENT: Within normal limits. CARDIOVASCULAR: Regular rate and rhythm. LUNGS: Clear to auscultation. BREASTS: Symmetrical, no masses. ABDOMEN: Gravid. Positive heart. PELVIC: External genitalia within normal limits. Vagina normal. Cervix grossly normal appearing, 1 cm, 50%, -2. EXTREMITIES: No clubbing, cyanosis or edema. IMPRESSION: * Intrauterine at 39 weeks. * Induction of labor. PLAN: We will proceed with Cytotec. Informed consent obtained. Risks and complications of induction discussed with the patient. The patient fully understands. She wishes to proceed with induction. DO APURVA Carpenter TID: [id number] RECEIPT: [id number]
[2024-10-18] MEDS: NALOXONE HCL 0.4 MG/ML VIAL IV ONE (12:30)
[2024-10-18] MEDS ORDERED: PENICILLIN G POTASSIUM 2,500,000 UNITS in D5W 5% 50 ML IV SCH (12:45)
[2024-10-18] MEDS: POTASSIUM CHL 20 Meq TABLET PO ONE (13:21)
[2024-10-18] MEDS: CLINDAMYCIN 900MG IV 50 ML IV SCH ×2 (13:21→22:05)
[2024-10-18] MEDS: ROPIVACAINE HCL 100 ML ONE ×2 (13:31→20:27)
--- NOTE | 2024-10-18 15:58 | DVHPN2 ---
Chief Complaints Patient reports: No new complaints Nursing reports: No new complaints Objective Medications Current Medications Medications (Trade) Dose Ordered Sig/Tyler Route PRN Reason Start Time Stop Time Status Last Admin Benzocaine (Dermoplast) 1 applic PRN PRN TOP PERINEAL AREA DISCOMFORT 10/18/24 08:45 10/18/24 10:17 Butorphanol Tartrate (Stadol Injection) 1 mg Q4HPRN PRN IV MODERATE PAIN (4-6 PAIN SCALE) 10/18/24 08:45 Butorphanol Tartrate (Stadol Injection) 2 mg Q4HPRN PRN IV SEVERE PAIN (7-10 PAIN SCALE) 10/18/24 08:45 Clindamycin Phosphate 50 ml @ 50 mls/hr Q8HR IV 10/18/24 14:00 10/18/24 13:21 Lactated Ringer's 1,000 ml @ 125 mls/hr Q8H IV 10/18/24 08:45 10/18/24 10:17 Lidocaine HCl (Xylocaine) 20 ml ONCE PRN IJ PERINEAL AREA DISCOMFORT 10/18/24 08:45 Misoprostol (Cytotec) 50 mcg Q4HPRN PRN PO CERVICAL RIPENING 10/18/24 08:45 10/18/24 14:31 Sodium Lauryl Sulfate (Phisoderm) 240 ml PRN PRN TOP PERINEAL AREA DISCOMFORT 10/18/24 08:45 10/18/24 10:18 Witch Maria Teresa (Tucks) 1 pad PRN PRN TOP PERINEAL AREA DISCOMFORT 10/18/24 08:45 10/18/24 10:18 Others VE-1.5CM/50/-3 Studies Laboratory Tests 10/18/24 08:54 Test 10/18/24 08:54 Range/Units Serum Glucose 73 L 74-106 mg/dL Ass/Plan Assessment IOL Plan REC 2 CYTOTEC Visit Coding OBGYN Date of Service: Oct 18, 2024 Billing Provider: LIDIA CM DO GRINDING MACHINE OPERATOR Common Visit Codes: [id number] OBS CARE (HIGH) GRINDING MACHINE OPERATOR Procedure Codes: 60117-83- NON-STRESS TEST LIDIA CM DO Oct 18, 2024 15:58
--- NOTE | 2024-10-19 00:24 | DVHPN2 ---
CNM Labor Progress Note Date and Time Seen Date Seen: Oct 18, 2024 Time Seen: 23:40 Subjective Patient reports: Feels better Subjective Comment CNM presents to bedside for deceleration. Patient resting L tilt with peanut ball and requesting removal of ball. Repositioned patient L lateral without peanut ball and deceleration resolved. Patient states she is feeling pressure. Objective Vital Signs VSS stable. See CPN Monitoring Method Monitoring Method: External Heart Rate Heart Rate Baseline: 135 Heart Rate Variability: Moderate Presence of FHR Accelerations: Yes Presence of FHR Decelerations: Yes Heart Rate Type of Decel: Variable Decelerations Comment on Trends or Patterns: cat 2 Contractions Contractions Frequency: Occasional (irregular) Contractions Intensity: Mild Contractions Resting Tone: Relaxed Membranes Membranes: Intact Vaginal Exam Vag Exam Deferred: No Vaginal Exam Dilation: 2 Vaginal Exam Effacement: 60 Vaginal Exam Station: -2 Vaginal Exam Presentation: VTX Vaginal Exam Show: None Medications Medications - Pitocin: No Medication - Epidural: Yes Lab Results Lab Results Current Medications Medications (Trade) Dose Ordered Sig/Tyler Start Time Stop Time Status Last Admin Dose Admin Lactated Ringer's 1,000 ml @ 125 mls/hr Q8H 10/18/24 08:45 10/18/24 20:45 125 MLS/HR Penicillin G Potassium 50 ml @ 100 mls/hr ONCE ONCE 10/18/24 08:45 10/18/24 10:02 DC Penicillin G Potassium [id number] units/Dextrose 50 ml @ 100 mls/hr Q4H 10/18/24 12:45 10/18/24 10:02 DC Jian Morel (Tucks) 1 pad PRN PRN 10/18/24 08:45 10/18/24 10:18 1 PAD Sodium Lauryl Sulfate (Phisoderm) 240 ml PRN PRN 10/18/24 08:45 10/18/24 10:18 240 ML Benzocaine (Dermoplast) 1 applic PRN PRN 10/18/24 08:45 10/18/24 10:17 1 APPLIC Butorphanol Tartrate (Stadol Injection) 1 mg Q4HPRN PRN 10/18/24 08:45 Butorphanol Tartrate (Stadol Injection) 2 mg Q4HPRN PRN 10/18/24 08:45 Misoprostol (Cytotec) 50 mcg Q4HPRN PRN 10/18/24 08:45 10/18/24 21:00 50 MCG Lidocaine HCl (Xylocaine) 20 ml ONCE PRN 10/18/24 08:45 Oxytocin 500 ml @ 999 mls/hr Q31M ONCE 10/18/24 08:45 10/18/24 09:46 DC Oxytocin 500 ml @ 125 mls/hr Q4H ONCE 10/18/24 09:15 10/18/24 13:14 DC Clindamycin Phosphate 50 ml @ 50 mls/hr Q8HR 10/18/24 14:00 10/18/24 16:32 DC 10/18/24 13:21 50 MLS/HR Potassium Chloride (Klor-Con Tablet) 40 meq ONCE ONCE 10/18/24 10:30 10/18/24 10:51 DC 10/18/24 13:21 40 MEQ Naloxone HCl (Narcan) 0.2 mg PRN ONCE 10/18/24 12:30 10/18/24 12:31 DC Ephedrine Sulfate (ePHEDrine SULFATE) 10 mg PRN ONCE 10/18/24 12:30 10/18/24 12:31 DC 10/18/24 18:55 10 MG Clindamycin Phosphate 50 ml @ 50 mls/hr Q8HR 10/18/24 22:00 10/18/24 22:05 50 MLS/HR Laboratory Tests Test 10/18/24 08:54 10/18/24 08:00 Range/Units White Blood Count 5.6 4.4-10.8 10^3/uL Red Blood Count 4.23 4.0-5.20 10^6/uL Hemoglobin 13.2 12.2-16.2 g/dL Hematocrit 37.7 36.0-46.0 % Mean Corpuscular Volume 89.0 80.0-100.0 fL Mean Corpuscular Hemoglobin 31.1 28.0-32.0 pg Mean Corpuscular Hemoglobin Concent 34.9 32.0-36.0 g/dL Red Cell Distribution Width 14.9 H 11.8-14.3 % Platelet Count 193 140-450 10^3/uL Mean Platelet Volume 8.6 6.9-10.8 fL Neutrophils (%) (Auto) 64.9 37.0-80.0 % Lymphocytes (%) (Auto) 24.2 10.0-50.0 % Monocytes (%) (Auto) 10.2 0.0-12.0 % Eosinophils (%) (Auto) 0.4 0.0-7.0 % Basophils (%) (Auto) 0.3 0.0-2.0 % Neutrophils # (Auto) 3.6 1.6-8.6 10 ^3/uL Lymphocytes # (Auto) 1.4 0.4-5.4 10 ^3/uL Monocytes # (Auto) 0.6 0-1.3 10 ^3/uL Eosinophils # (Auto) 0 0-0.8 10 ^3/uL Basophils # (Auto) 0 0-0.2 10 ^3/uL Nucleated Red Blood Cells 0.1 % Prothrombin Time 10.1 9.3-11.8 sec Prothrombin Time INR 0.95 0.9-1.15 Activated Partial Thromboplast Time 29.4 24.5-34.5 SEC Sodium Level 141 136-145 mmol/L Potassium Level 3.4 L 3.5-5.1 mmol/L Chloride Level 107 98-107 mmol/L Carbon Dioxide Level 25 20-31 mmol/L Anion Gap 9 5-15 Blood Urea Nitrogen < 5 L 9-23 mg/dL Creatinine 0.59 0.550-1.02 mg/dL Glomerular Filtration Rate Calc 121 >90 mL/min BUN/Creatinine Ratio 8.5 L 10.0-20.0 Serum Glucose 73 L 74-106 mg/dL Calcium Level 8.9 8.7-10.4 mg/dL Total Bilirubin 0.4 0.2-1.0 mg/dL Aspartate Amino Transferase (AST) 18 13-40 U/L Alanine Aminotransferase (ALT) 19 7-40 U/L Alkaline Phosphatase 107 46-116 U/L Total Protein 6.3 5.7-8.2 g/dL Albumin 3.7 3.2-4.8 g/dL Treponema pallidum Antibody Non-reactive Negative Hepatitis C Antibody Negative Negative Urine Color Light-yellow Yellow Urine Clarity Turbid H Clear Urine pH 6.5 5.0-9.0 Urine Specific [place] 1.013 1.001-1.035 Urine Protein Negative Negative Urine Ketones Negative Negative Urine Blood Negative Negative /uL Urine Nitrite Negative Negative Urine Bilirubin Negative Negative Urine Urobilinogen Normal Negative mg/dL Urine Leukocyte Esterase 3+ Negative /uL Urine RBC 3 0 - 4 /hpf Urine Microscopic WBC 19 H 0-5 /HPF Urine Squamous Epithelial Cells Mod <5 /hpf Urine Bacteria Few H None Seen /hpf Urine Mucus Few None Seen Urine Glucose Normal Normal mg/dL Urine Opiates Screen Neg NEGATIVE Urine Fentanyl Screen Neg NEGATIVE Urine Barbiturates Screen Neg NEGATIVE Urine Phencyclidine Screen Neg NEGATIVE Urine Amphetamines Screen Neg NEGATIVE Urine Benzodiazepines Screen Neg NEGATIVE Urine Cocaine Screen Neg NEGATIVE Urine Cannabinoids Screen Neg NEGATIVE Assessment Assessment 33 year old with IUP at 39w4d GBS positive Induction, Early labor Low potassium Plan Plan -Discussed SVE and performed with consent. Patient unchanged from last exam. Discussed induction methods and potentially using ripening balloon with cytotec. Patient consents to martell balloon placement as she is "eager" to have the baby "as quickly as possible" -Repeat CMP in the AM to check potassium levels -Vital signs per policy -Continue clindamycin per policy for GBS prophylaxis -Reposition patient frequently and as needed for maternal comfort and trac ing Plan discussed with: Patient Visit Coding OBGYN Date of Service: Oct 18, 2024 Billing Provider: EUGENIO DENISE CNM PRINCIPAL ACCOUNTS CLERK Common Visit Codes: [id number] INP/OBS CARE(HIGH) EUGENIO DENISE CNM Oct 19, 2024 00:23
[2024-10-19] MEDS: ROPIVACAINE HCL 100 ML ONE (05:14)
[2024-10-19] MEDS: LACT. RINGERS/OXYTOCIN 20UNITS 1,000 ML IV SCH (05:47)
--- NOTE | 2024-10-19 07:19 | DVHPN2 ---
Chief Complaints Patient reports: No new complaints, Feels better Nursing reports: No new complaints Objective Medications Current Medications Medications (Trade) Dose Ordered Sig/Tyler Route PRN Reason Start Time Stop Time Status Last Admin Benzocaine (Dermoplast) 1 applic PRN PRN TOP PERINEAL AREA DISCOMFORT 10/18/24 08:45 10/18/24 10:17 Butorphanol Tartrate (Stadol Injection) 1 mg Q4HPRN PRN IV MODERATE PAIN (4-6 PAIN SCALE) 10/18/24 08:45 Butorphanol Tartrate (Stadol Injection) 2 mg Q4HPRN PRN IV SEVERE PAIN (7-10 PAIN SCALE) 10/18/24 08:45 Clindamycin Phosphate 50 ml @ 50 mls/hr Q8HR IV 10/18/24 22:00 10/19/24 05:37 Lactated Ringer's 1,000 ml @ 125 mls/hr Q8H IV 10/18/24 08:45 10/19/24 05:47 Lidocaine HCl (Xylocaine) 20 ml ONCE PRN IJ PERINEAL AREA DISCOMFORT 10/18/24 08:45 Misoprostol (Cytotec) 50 mcg Q4HPRN PRN PO CERVICAL RIPENING 10/18/24 08:45 10/19/24 00:59 Oxytocin 1,000 ml @ 6 ml/hr Q24H IV 10/19/24 05:30 10/19/24 05:47 Sodium Lauryl Sulfate (Phisoderm) 240 ml PRN PRN TOP PERINEAL AREA DISCOMFORT 10/18/24 08:45 10/18/24 10:18 Witch Maria Teresa (Tucks) 1 pad PRN PRN TOP PERINEAL AREA DISCOMFORT 10/18/24 08:45 10/18/24 10:18 Others ve-4cm/70/-2 Studies Laboratory Tests 10/18/24 08:54 Test 10/19/24 07:04 Range/Units Serum Glucose Pending Ass/Plan Assessment IOL Plan cont with current care Visit Coding OBGYN Date of Service: Oct 19, 2024 Billing Provider: LIDIA CM DO TOOL CRIB MANAGER Common Visit Codes: [id number] INP/OBS CARE (HIGH), [id number] INP/OBS CARE(LOW) TOOL CRIB MANAGER Procedure Codes: 51607-53- NON-STRESS TEST LIDIA CM DO Oct 19, 2024 07:19
[2024-10-19 07:33] LABS: Alanine Aminotransferase 14 U/L (7-40); Albumin 3.4 g/dL (3.2-4.8); Alkaline Phosphatase 98 U/L (46-116); Anion Gap 10 (5-15); Bilirubin, Total 0.8 mg/dL (0.2-1.0); Calcium 9.0 mg/dL (8.7-10.4); Carbon Dioxide 22 mmol/L (20-31); Potassium 3.8 mmol/L (3.5-5.1); Sodium 140 mmol/L (136-145); Total Protein 5.9 g/dL (5.7-8.2)
[2024-10-19 07:37] LABS: Chloride 108 mmol/L (98-107)
[2024-10-19 07:38] LABS: BUN/Creatinine Ratio 9.6 (10.0-20.0); Blood Urea Nitrogen < 5 mg/dL (9-23); Glucose 72 mg/dL (74-106)
[2024-10-19] MEDS: LACT. RINGERS/OXYTOCIN 20UNITS 500 ML IV ONE ×2 (09:25→09:47)
[2024-10-19] MEDS ORDERED: ONDANSETRON ODT 4 MG TAB PO PRN (10:00)
--- NOTE | 2024-10-19 12:16 | LDN2 ---
Labor and Delivery Note Date 10/19/24 Age 33 6 Para 4 AB 2 EDC 9-14 EGA 39wks Diagnosis iol Vaginal Delivery: VTX Vacuum Assisted: No Placenta: Spontaneous Sex: Male Apgars 8-8 Nuchal Cord Transected: Yes Amniotic Fluid: Clear Anesthesia epidural Episiotomy: No Extension: Yes (1st deg vag lac) Repaired with 2-0 chromic EBL 300ml Labs Blood Bank 10/18/24 08:54: Blood Type O POSITIVE Complications none Conditions stable Comments/Significant Med Sandra spec exam no cxal lac Visit Coding OBGYN Date of Service: Oct 19, 2024 Billing Provider: LIDIA CM DO ENGLISH AND READING INSTRUCTOR Common Visit Codes: [id number] OBS CARE (HIGH) ENGLISH AND READING INSTRUCTOR Procedure Codes: 38073-DIN DELIVERY ONLY LIDIA CM DO Oct 19, 2024 12:16
[2024-10-19] MEDS: IBUPROFEN 600 MG TAB PO PRN (12:20)
[2024-10-19 14:59] VITALS: BP 99/64; PULSE 88; RESP 16; TEMP 98.4
[2024-10-19] MEDS: ACETAMINOPHEN 325 MG TAB PO PRN (17:24)
[2024-10-19 19:00] VITALS: BP 99/64; PULSE 85; RESP 18; TEMP 98; O2SAT 99
[2024-10-19] MEDS: DOCUSATE SOD 100 MG CAP PO SCH (21:48)
[2024-10-19 23:00] VITALS: BP 99/61; PULSE 73; TEMP 97.7; O2SAT 98
--- NOTE | 2024-10-20 02:33 | DVHPN2 ---
Progress Note Date Seen: Oct 20, 2024 Subjective Patient is resting L lateral. States she is doing well overall, but does feel occasional cramping and some pelvic pressure. States her body feels more tired with this and recovery. SUBJECTIVE -Lochia minimal -Tolerating regular diet well. -Pain relieved with oral medication PRN -Ambulating and voiding well w/o feeling lightheaded or dizzy. -Passing flatus. Had BM already -Breast feeding. -Desires and requests to be discharged home today as long as baby passes jaundice screening vital signs Vital Sign Date Time Temp Pulse Resp B/P (MAP) Pulse Ox O2 Delivery O2 Flow Rate FiO2 10/19/24 23:00 97.7 73 99/61 (74) 98 97.7 10/19/24 19:00 Room Air 10/19/24 19:00 18 Total Intake and Output 10/19/24 10/19/24 10/20/24 15:00 23:00 07:00 Output Total 900 ml 200 ml Balance -900 ml -200 ml medications Current Medications Medications Dose Ordered Sig/Tyler Route Start Time Stop Time Status Last Admin Dose Admin Jian Webbel 1 pad PRN PRN TOP 10/18/24 08:45 10/18/24 10:18 1 PAD Sodium Lauryl Sulfate 240 ml PRN PRN TOP 10/18/24 08:45 10/18/24 10:18 240 ML Benzocaine 1 applic PRN PRN TOP 10/18/24 08:45 10/18/24 10:17 1 APPLIC Butorphanol Tartrate 1 mg Q4HPRN PRN IV 10/18/24 08:45 Cancel Butorphanol Tartrate 2 mg Q4HPRN PRN IV 10/18/24 08:45 Cancel Lidocaine HCl 20 ml ONCE PRN IJ 10/18/24 08:45 Cancel Ibuprofen 600 mg Q6HP PRN PO 10/19/24 10:00 10/19/24 18:51 600 MG Acetaminophen 650 mg Q4HP PRN PO 10/19/24 10:00 10/20/24 02:22 650 MG Ondansetron HCl 4 mg Q4HPRN PRN PO 10/19/24 10:00 Docusate Sodium 200 mg HS PO 10/19/24 22:00 10/19/24 21:48 200 MG laboratory and microbiology Laboratory Tests 10/19/24 07:04 10/18/24 08:54 Test 10/19/24 07:04 Range/Units Serum Glucose 72 L 74-106 mg/dL Objective OBJECTIVE -A&O x4. No apparent distress. Affect appropriate -Afebrile, VSS -Chest: heart and lung sounds normal. -Breasts: Nipples intact w/o cracks or soreness -Abdomen: normal BS, soft, non-tender, no rebound or guarding, fundus firm @ U- 1, lochia minimal -Perineum:- no edema, or erythema, Incision site with sutures intact, edges in good approximation. -Extremities: no edema or tenderness Problems(with codes): (1) (normal spontaneous vaginal delivery) (2) First degree perineal laceration Assessment/Plan ASSESSMENT -33yo now ppd #1 s/p doing well. -Blood Type: O+ (baby B+ and celsa pos) -Breast feeding -Rubella Immune PLAN -Continue pain management with oral medications as previously ordered. Gave patient abdominal binder to assist with the pelvic pressure and help support pelvic floor. Demonstrated how to wear and patient verbalizes understanding -Increase fluid intake and fiber in diet to promote regular bowel movements, Laxative PRN -Encouraged patient to continue taking vitamin and iron -Educated patient on self care and warning signs of PPH, PPD, and pre-eclampsia. Answered all pt questions and concerns -Continue routine care and anticipate discharge today Plan discussed with: Patient Visit Coding OBGYN Date of Service: Oct 20, 2024 Billing Provider: EUGENIO DENISE CNM PROTOTYPE ENGINEER MANAGER Common Visit Codes: [id number] INP/OBS CARE(HIGH) EUGENIO DENISE CNM Oct 20, 2024 02:33
--- NOTE | 2024-10-20 02:39 | DVHDS2 ---
Obstetrics Discharge Summary Obstetrics Discharge Summary Date of Admission: Oct 18, 2024 Date of Discharge: Oct 20, 2024 Reason For Admission: Induction of Labor (elective) Intrapartum Procedures: Spontaneous vaginal deliv Operative Complicat: Laceration (Perineal, first degree) Discharge Diagnosis: Term -Delivered Discharge Information: Activity (Unrestricted. Advance as tolerated. Balance activities with rest periods. No heavy lifting, pushing or straining. Pelvic rest x 6 weeks), Diet (Routine regular diet rich in fiber, protein, iron and vitamin C with adequate fluid intake), Medications (Ibuprofen 600mg every 6 hours as needed for pain. Colace 100mg twice a day as needed to keep bowel movements soft and prevent constipation. Continue Vitamin and iron), Discharge to (Home), Discarge date (10/20/24) Discharge Care Plan Instructions - self care instructions given - emergency signs and symptoms including but not limited to pre-eclampsia precautions and signs of infection, PPH & of PPD reviewed with patient. -Follow up with OB Provider in 2 weeks and again at 6 weeks Visit Coding OBGYN Date of Service: Oct 20, 2024 Billing Provider: EUGENIO DENISE CNM SHIFT MECHANIC Common Visit Codes: [id number]-WHC/OBS DISCH DAY >30MIN EUGENIO DENISE CNM Oct 20, 2024 02:38
[2024-10-20 03:00] VITALS: BP 102/65; PULSE 79; RESP 16; TEMP 98.1; O2SAT 98
[2024-10-20] MEDS ORDERED: DOCU-94 PO ×2 (03:34)
[2024-10-20] MEDS ORDERED: IBU600T PO ×2 (03:34)
[2024-10-20 07:00] VITALS: BP 96/63; PULSE 84; RESP 16; TEMP 97.8; O2SAT 97
[2024-10-20 11:28] VITALS: BP 109/55; PULSE 79; RESP 16; TEMP 97.8; O2SAT 97
[2024-10-20 14:51] VITALS: BP 104/65; PULSE 83; RESP 17; TEMP 97.9; O2SAT 97
== END 2024-10-20 17:25 | disposition home or self-care (01) | DRG 560 ==
LOC: LDRP 08:27
PROVIDERS: ADMIT Obstetrics & Gynecology; ATTEND Obstetrics & Gynecology
PROC: 0HQ9XZZ Repair Perineum Skin, External Approach (ICD-10-PCS; principal; 2024-10-19)
PROC: 10E0XZZ Delivery of Products of Conception, External Approach (ICD-10-PCS; 2024-10-19)
PROC: 3E0R3BZ Introduction of Anesthetic Agent into Spinal Canal, Percutaneous Approach (ICD-10-PCS; 2024-10-19)
PROC: 00HU33Z Insertion of Infusion Device into Spinal Canal, Percutaneous Approach (ICD-10-PCS; 2024-10-19)
PROC: 0U7C7DJ Dilation of Cervix with Intraluminal Device, Temporary, Via Natural or Artificial Opening (ICD-10-PCS; 2024-10-19)
DX: O69.81X0 Labor and delivery complicated by cord around neck, without compression, not applicable or unspecified (principal); Z37.0 Single live birth; O70.0 First degree perineal laceration during delivery; O99.824 Streptococcus B carrier state complicating childbirth; Z3A.39 39 weeks gestation of pregnancy
CPT/HCPCS: 36415; 59200; 59409; 62282; 80053; 80307; 81001; 85025; 85610; 85730; 86780; 86803; 86850; 86900; 86901; 94760; 94762; 96360; 96361; 96366; 96375; A4344; G0378; J2590; J3490